=== PATIENT | female | born 1945 | race Caucasian/White ===

== ENCOUNTER 2017-01-27 14:50 | Inpatient (IN) | payer MEDICARE, BC ==
[~2017-01-27] VITALS: Ht 167.6 cm; Wt 66.0 kg
[2017-01-27 14:51] VITALS: BP 158/87; PULSE 107; RESP 16; TEMP 99.4; O2SAT 98
--- NOTE | 2017-01-27 15:34 | PD ---
Physical Exam Date Seen by Provider: Jan 27, 2017 Time Seen by Provider: 15:29 Data Data Last Documented VS Vital Signs Date Time Temp Pulse Resp B/P Pulse Ox O2 Delivery O2 Flow Rate FiO2 01/27/17 14:51 99.4 107 16 158/87 98 MDM Supervised Visit with BRET: No Narrative Course 72 YO F with complaint of abdominal pain x "a couple weeks." History of diverticulitis. Treated with antibiotics, symptoms worsened. Outpatient CT scan at [facility] showed abscess. Sent by Dr. Gonsalves "for admission, IV antibiotics and drain placement." Vitals reviewed. Seen in triage, awaiting bed placement. Tamanna Treviño Jan 27, 2017 15:34
[2017-01-27 17:15] VITALS: BP 157/72; PULSE 108; RESP 16; O2SAT 97
--- NOTE | 2017-01-27 17:31 | HHI.PR ---
Addendum to Inpatient Note Addendum Reason: Additional Documentation Additional Information Dr. Martinez (Primary care outpatient): I spoke with radiologist at [facility] and with Dr. Gillespie today (her GI--please consult). She has an 8cm midline diverticular abscess. Dr. Gillespie asked for inpatient IV antibiotics and radiology consult for drainage of the abscess. She recently completed 10 days of cipro/flagyl and just didn't feel right on that med. May consider Unasyn or other to treat. Pt also has lupus and antiphospholipid syndrome. Please call if you have questions. Yasmine Hutchinson MD Jan 27, 2017 17:31
[2017-01-27] MEDS ORDERED: LANS30CA PO (17:35)
[2017-01-27] MEDS ORDERED: RAMI2.5C PO (17:35)
[2017-01-27] MEDS ORDERED: PLAQ200T PO (17:35)
[2017-01-27] MEDS ORDERED: VITA100036 PO (17:35)
[2017-01-27] MEDS ORDERED: MULTTAB67 PO (17:35)
[2017-01-27] MEDS ORDERED: ASPI81CH CHEW (17:35)
[2017-01-27] MEDS: DEXT 5%-NACL 0.45% 1000 ML INJ 1,000 ML IV SCH (18:10)
[2017-01-27 18:15] LABS: AUTOMATED NEUTROPHIL # 6.2 TH/MM3 (1.8-7.7); BASOPHIL % 0.4 % (0.0-2.0); EOSINOPHIL % 0.1 % (0.0-4.0); HEMATOCRIT 36.3 % (35.0-46.0); HEMO FLAGS DIFF FINAL; LYMPH % 8.2 % (9.0-44.0); LYMPHOCYTE # 0.6 TH/MM3 (1.0-4.8); MEAN CELL VOLUME 83.3 FL (80.0-100.0); MEAN CORPUSCULAR HEMOGLOBIN 26.9 PG (27.0-34.0); MEAN CORPUSCULAR HGB CONC 32.3 % (32.0-36.0); MONO % 8.9 % (0.0-8.0); NEUT % 82.4 % (16.0-70.0); PLATELET COUNT 243 TH/MM3 (150-450); RED BLOOD COUNT 4.35 MIL/MM3 (4.00-5.30); RED CELL DISTRIBUTION WIDTH 15.5 % (11.6-17.2); WHITE BLOOD COUNT 7.6 TH/MM3 (4.0-11.0)
[2017-01-27] MEDS ORDERED: PIPERACIL-TAZO 4.5 GM PREMIX 100 ML IV ONE (18:15)
[2017-01-27 18:21] LABS: BLOOD, URINE NEG (NEG); COMMENT (UR) CULT NOT INDICATED; CULTURE IF INDICATED CULT NOT INDICATED; GLUCOSE,URINE NEG (NEG); KETONE, URINE NEG (NEG); NITRITE,URINE NEG (NEG); SQUAMOUS EPITHELIAL CELL URINE 1 /hpf (0-5); URINE COLOR LIGHT-YELLOW (YELLW/STRAW)
[2017-01-27 18:51] LABS: ALT (GPT) 26 U/L (10-53); ANION GAP 10 MEQ/L (5-15); AST (GOT) 26 U/L (15-37); BICARBONATE 25.7 MEQ/L (21.0-32.0); BLOOD UREA NITROGEN 12 MG/DL (7-18); CHLORIDE 99 MEQ/L (98-107); GLOMERULAR FILTRATION RATE 53 ML/MIN (>89); POTASSIUM 3.7 MEQ/L (3.5-5.1); SODIUM (NA) 135 MEQ/L (136-145)
[2017-01-27 18:53] LABS: ALKALINE PHOSPHATASE 46 U/L (45-117)
[2017-01-27] MEDS ORDERED: NALOXONE HCL 0.4 MG/ML AMP IV PRN (19:00)
[2017-01-27] MEDS ORDERED: MAGNESIUM HYDROXIDE SUSP 30 ML CUP PO PRN (19:00)
[2017-01-27] MEDS ORDERED: LACTULOSE SYRUP 20 GM/30 ML CUP PO PRN (19:00)
[2017-01-27] MEDS ORDERED: BISACODYL 10 MG SUPP RECTAL PRN (19:00)
[2017-01-27] MEDS ORDERED: SENNOSIDES 8.6 MG TAB PO PRN (19:00)
[2017-01-27] MEDS ORDERED: ONDANSETRON HCL 4 MG/2 ML VIAL IVP PRN (19:00)
[2017-01-27] MEDS ORDERED: SODIUM CHLORIDE 0.9% FLUSH 10 ML FLUSH IV FLUSH PRN (19:00)
[2017-01-27 19:11] VITALS: BP 151/71; PULSE 97; RESP 16; O2SAT 98
[2017-01-27] MEDS: SODIUM CHLORIDE 0.9% FLUSH 10 ML FLUSH IV FLUSH SCH (21:00)
[2017-01-27 21:20] VITALS: BP 130/64; PULSE 107; RESP 18; TEMP 97.8; O2SAT 95
--- NOTE | 2017-01-27 22:19 | HHI.HP ---
HPI Service [facility] Primary Care Physician Yasmine Martinez MD Admission Diagnosis Diverticulitis with abscess, failed outpatient treatment Diagnoses: Chief Complaint: abdominal pain Travel History International Travel<30 Days: No Contact w/Intl Traveler <30 Da: No Traveled to Known Affected Are: No History of Present Illness Written by Hannah Santamaria, acting as scribe for Dr. Abdi on 01/27/17 at 22: 19. This is a pleasant 72-year-old female patient with past medical history which includes diverticulitis, systemic lupus on Actonel mild hypertension and GERD. Patient reports for the past 2 weeks she has had severe stabbing generalized abdominal pain. Patient has completed 10 days of Cipro and Flagyl by mouth as outpatient antibiotics. Patient reports initially the abdominal pain improved with the by mouth antibiotics but later returned. Patient's PCP ordered in abdomen/pelvis CT which will was done today at [facility]. Per Dr. Martinez's note the abdominal/pelvis CT showed 8cm midline diverticular abscess Patient reports low-grade fever and passage of large amount of formed stool. Patient states she is "constantly going, but not diarrhea." Patient denies black tarry stools or bright red blood per rectum. Patient also reports increased frequency of urination with dysuria. UA reviewed and reveals negative protein negative ketones negative nitrates small amount of leukocyte esterase. Patient reports some nausea present but denies vomiting. Patient also denies chest pain or shortness of breath. Review of Systems Except as stated in HPI: all other systems reviewed are Neg Past Family Social History Past Medical History diverticulitis, systemic lupus, mild HTN, GERD Past Surgical History C section x 2, hysterectomy and cholecystectomy Reported Medications Multiple Vitamin 1 Tab 1 Tab PO DAILY Vitamin D3 (Cholecalciferol) 1,000 Unit Cap 1,000 Units PO DAILY Plaquenil (Hydroxychloroquine Sulfate) 200 Mg Tab 200 Mg PO DAILY Take with food Aspirin 81 Mg Chew 81 Mg CHEW DAILY Ramipril 2.5 Mg Cap 2.5 Mg PO DAILY Lansoprazole 30 Mg Capdr 30 Mg PO DAILY Allergies: Coded Allergies: Sulfa (Verified Allergy, Severe, 02/24/06) Active Ordered Medications Current Medications Medications (Trade) Dose Ordered Sig/Bonifacio Route Start Time Stop Time Status Last Admin (D5W-/2 NS 1000 ml Inj) 1,000 ml @ 100 mls/hr Q10H IV 01/27/17 18:15 01/27/17 18:10 (NS Flush) 2 ml UNSCH PRN IV FLUSH 01/27/17 19:00 (NS Flush) 2 ml BID IV FLUSH 01/27/17 21:00 (Zofran Inj) 4 mg Q6H PRN IVP 01/27/17 19:00 (Narcan Inj) 0.4 mg UNSCH PRN IV 01/27/17 19:00 (Liza-Colace) 1 tab BID PO 01/27/17 21:00 (Milk Of Magnesia Liq) 30 ml Q12H PRN PO 01/27/17 19:00 (Senokot) 17.2 mg Q12H PRN PO 01/27/17 19:00 (Dulcolax Supp) 10 mg DAILY PRN RECTAL 01/27/17 19:00 Lactulose 30 ml 30 ml DAILY PRN PO 01/27/17 19:00 (Zosyn 3.375 Gm Premix) 50 ml @ 100 mls/hr Q6H IV 01/28/17 00:00 (Altace) 2.5 mg DAILY PO 01/28/17 09:00 (Protonix) 40 mg DAILY PO 01/28/17 09:00 Family History Patient reports DM and CAD runs on the family Social History social ETOH Quit smoking 1969 denies illicit drug use Physical Exam Vital Signs Vital Signs Date Time Temp Pulse Resp B/P Pulse Ox O2 Delivery O2 Flow Rate FiO2 01/27/17 21:20 97.8 107 18 130/64 95 01/27/17 19:11 97 16 151/71 98 Room Air 01/27/17 17:15 108 16 157/72 97 Room Air 01/27/17 14:51 99.4 107 16 158/87 98 Physical Exam GENERAL: This is a well-nourished, well-developed patient, in no apparent distress. SKIN: No rashes, ecchymoses or lesions. Cool and dry. HEAD: Atraumatic. Normocephalic. No temporal or scalp tenderness. EYES: Pupils equal round and reactive. Extraocular motions intact. No scleral icterus. No injection or drainage. ENT: Nose without bleeding, purulent drainage or septal hematoma. Throat without erythema, tonsillar hypertrophy or exudate. Uvula midline. Airway patent. NECK: Trachea midline. No JVD or lymphadenopathy. Supple, nontender, no meningeal signs. CARDIOVASCULAR: Regular rate and rhythm without murmurs, gallops, or rubs. RESPIRATORY: Clear to auscultation. Breath sounds equal bilaterally. No wheezes , rales, or rhonchi. GASTROINTESTINAL: Abdomen soft, generalized abdominal pain, nondistended. No guarding. MUSCULOSKELETAL: Extremities without clubbing, cyanosis, or edema. No joint tenderness, effusion, or edema noted. No calf tenderness. Negative Homans sign bilaterally. NEUROLOGICAL: Awake and alert. Cranial nerves II through XII intact. Motor and sensory grossly within normal limits. Five out of 5 muscle strength in all muscle groups. Normal speech. Laboratory Laboratory Tests Test 01/27/17 18:00 White Blood Count 7.6 Red Blood Count 4.35 Hemoglobin 11.7 Hematocrit 36.3 Mean Corpuscular Volume 83.3 Mean Corpuscular Hemoglobin 26.9 Mean Corpuscular Hemoglobin 32.3 Concent Red Cell Distribution Width 15.5 Platelet Count 243 Mean Platelet Volume 8.0 Neutrophils (%) (Auto) 82.4 Lymphocytes (%) (Auto) 8.2 Monocytes (%) (Auto) 8.9 Eosinophils (%) (Auto) 0.1 Basophils (%) (Auto) 0.4 Neutrophils # (Auto) 6.2 Lymphocytes # (Auto) 0.6 Monocytes # (Auto) 0.7 Eosinophils # (Auto) 0.0 Basophils # (Auto) 0.0 CBC Comment DIFF FINAL Differential Comment Urine Color LIGHT-YELLOW Urine Turbidity CLEAR Urine pH 6.0 Urine Specific [place] 1.009 Urine Protein NEG Urine Glucose (UA) NEG Urine Ketones NEG Urine Occult Blood NEG Urine Nitrite NEG Urine Bilirubin NEG Urine Urobilinogen LESS THAN 2.0 Urine Leukocyte Esterase SMALL Urine WBC 5 Urine Squamous Epithelial 1 Cells Microscopic Urinalysis Comment CULT NOT INDICATED Sodium Level 135 Potassium Level 3.7 Chloride Level 99 Carbon Dioxide Level 25.7 Anion Gap 10 Blood Urea Nitrogen 12 Creatinine 1.02 Estimat Glomerular Filtration 53 Rate Random Glucose 123 Calcium Level 9.7 Total Bilirubin 1.0 Aspartate Amino Transf 26 (AST/SGOT) Alanine Aminotransferase 26 (ALT/SGPT) Alkaline Phosphatase 46 Total Protein 9.7 Albumin 4.0 Date/Time Procedure Status Source Growth 01/27/17 18:00 Aerobic Blood Culture Received Blood Peripheral Pending 01/27/17 18:00 Anaerobic Blood Culture Received Blood Peripheral Pending Result Diagram: 01/27/17 1800 01/27/17 1800 Assessment and Plan Problem List: (1) Diverticulitis ICD Code: K57.92 Status: Acute (2) Abscess ICD Code: L02.91 Status: Acute (3) Systemic lupus ICD Code: M32.9 Status: Acute Assessment and Plan This is a pleasant 72-year-old female patient with past medical history which includes diverticulitis, systemic lupus on Actonel mild hypertension and GERD. Patient reports for the past 2 weeks she has had severe stabbing generalized abdominal pain. Patient has completed 10 days of Cipro and Flagyl by mouth as outpatient antibiotics. abdomen/pelvis CT which will was done today showed 8cm midline diverticular abscess Abdominal pain Diverticulitis with abscess Failed outpatient therapy Zosyn IV Q6H Consult GI- patient known to Dr. Gillespie Consult IR for abscess drainage Systemic Lupus- chronic Continue home medication Plaquenil HTN- chronic Continue home medication ramipril 2.5 mg by mouth GERD- chronic continue home medication DVT prophylaxis with SCDs Discussed with nursing and patient Physician Certification 2 Midnight Certification Type: Admission for Inpatient Services Order for Inpatient Services The services are ordered in accordance with Medicare regulations or non- Medicare payer requirements, as applicable. In the case of services not specified as inpatient-only, they are appropriately provided as inpatient services in accordance with the 2-midnight benchmark. Estimated LOS (days): 3 days is the estimated time the patient will need to remain in the hospital, assuming treatment plan goals are met and no additional complications. Post-Hospital Plan: Home Hannah Santamaria Jan 27, 2017 22:19
[2017-01-27] MEDS: PIPERACIL-TAZO 3.375 GM PREMIX 50 ML IV SCH (23:55)
[2017-01-27] MEDS: DOCUSATE SODIUM 50 MG/SENNA 8.6 MG TAB PO SCH (23:55)
[2017-01-28] VITALS (7 sets, daily range): BP systolic 110–143; BP diastolic 54–70; PULSE 80–101; RESP 16–18; TEMP 96.8–99.9; O2SAT 95–99
[2017-01-28] MEDS: DEXT 5%-NACL 0.45% 1000 ML INJ 1,000 ML IV SCH ×3 (04:15→20:59)
[2017-01-28 05:27] LABS: AUTOMATED NEUTROPHIL # 4.8 TH/MM3 (1.8-7.7); BASOPHIL % 0.2 % (0.0-2.0); EOSINOPHIL % 0.1 % (0.0-4.0); HEMATOCRIT 30.8 % (35.0-46.0); HEMO FLAGS DIFF FINAL; LYMPH % 7.9 % (9.0-44.0); LYMPHOCYTE # 0.5 TH/MM3 (1.0-4.8); MEAN CELL VOLUME 81.9 FL (80.0-100.0); MEAN CORPUSCULAR HEMOGLOBIN 28.2 PG (27.0-34.0); MEAN CORPUSCULAR HGB CONC 34.4 % (32.0-36.0); MONO % 10.3 % (0.0-8.0); NEUT % 81.5 % (16.0-70.0); PLATELET COUNT 216 TH/MM3 (150-450); RED BLOOD COUNT 3.76 MIL/MM3 (4.00-5.30); RED CELL DISTRIBUTION WIDTH 15.3 % (11.6-17.2); WHITE BLOOD COUNT 5.9 TH/MM3 (4.0-11.0)
[2017-01-28 06:00] LABS: BICARBONATE 24.7 MEQ/L (21.0-32.0); POTASSIUM 3.6 MEQ/L (3.5-5.1)
[2017-01-28] MEDS: PIPERACIL-TAZO 3.375 GM PREMIX 50 ML IV SCH ×3 (06:00→16:53)
[2017-01-28] MEDS: ASPIRIN 81 MG CHEW TAB CHEW SCH (08:43)
[2017-01-28] MEDS: SODIUM CHLORIDE 0.9% FLUSH 10 ML FLUSH IV FLUSH SCH ×2 (08:43→21:00)
[2017-01-28] MEDS: RAMIPRIL 2.5 MG CAP PO SCH (08:45)
[2017-01-28] MEDS: HYDROXYCHLOROQUINE SULFATE 200 MG TAB PO SCH (08:45)
[2017-01-28] MEDS: PANTOPRAZOLE SOD 40 MG DELAYED RELEASE TAB PO SCH (08:45)
[2017-01-28] MEDS: DOCUSATE SODIUM 50 MG/SENNA 8.6 MG TAB PO SCH ×2 (08:45→21:03)
[2017-01-28 09:37] LABS: INTERNATIONAL NORMALIZED RATIO 1.2 RATIO; PROTHROMBIN TIME - PATIENT 13.4 SEC (9.8-11.6)
--- NOTE | 2017-01-28 10:36 | MB ---
cc: VINITA MILLER M.D., SANDRA AGNONE, LOUIS M. MD OUNG,KATHLEEN FOY DATE OF CONSULTATION 01/28/[address] Abdi REASON FOR CONSULTATION For diverticular abscess. HISTORY This is a very pleasant 72-year-old female who states she had an episode of diverticulitis about two years ago. She developed abdominal pain a couple of weeks ago and was treated for suspected diverticulitis as an outpatient with oral Cipro and Flagyl, but she continued to have abdominal pain and recently some chills. Since she was not improving, she was sent yesterday to the outpatient imaging center for a CT scan which reportedly shows an 8 cm abscess involving the sigmoid colon. I have not been able to access those films yet. The patient was subsequently admitted and started on IV Zosyn. The patient does have a history of systemic lupus for which she takes Plaquenil. She states that colonoscopy was very difficult for her so she has been having a flex-sig and barium enema and the last one was a few years ago. No family history of colon cancer. She states she has lost a few pounds just in the last couple of weeks because she has been reluctant to eat because of the abdominal pain. She is moving her bowels and has not had any gross blood in the stool. Her abdominal pain is currently mild. SOCIAL HISTORY The patient is . She has two children. She quit smoking in 1968. No significant alcohol history. PAST MEDICAL HISTORY Her medical history is remarkable for: 1. GERD 2. Systemic lupus 3. A past history of diverticulitis once about two years ago. 4. History of mild hypertension. PAST SURGICAL HISTORY She has had: 1. Two C-sections 2. Hysterectomy 3. Cholecystectomy MEDICATIONS At home include: 1. Multivitamin 2. Vitamin D3 3. Plaquenil 4. Aspirin 81 mg daily 5. Ramipril 2.5 mg daily 6. Lansoprazole 30 mg daily ALLERGIES SHE IS ALLERGIC TO SULFA. FAMILY HISTORY Remarkable for heart disease and diabetes. No family history of colon cancer or polyps. REVIEW OF SYSTEMS She denies headache, chest pain, shortness of breath, significant joint pain or skin rashes. She has had the abdominal pain and more recently some chills as described above. The 10-point review of systems was otherwise negative. PHYSICAL EXAM Physical exam reveals a well-developed female in no acute distress. VITAL SIGNS: Her blood pressure is 143/70, pulse 101, respirations 17 nonlabored, temperature is 99.9 orally. HEAD, EYES, EARS, NOSE, AND THROAT: Sclerae anicteric. NECK: Supple without masses. LUNGS: Clear to percussion auscultation. HEART: Heart sounds reveal a very mild tachycardia without murmur, gallop or rub. ABDOMEN: Soft and slightly rounded with moderate tenderness in the left lower quadrant suprapubic area with some mild guarding, but no rebound. Bowel sounds are audible. RECTAL: Deferred. EXTREMITIES: No cyanosis, clubbing or edema. No calf tenderness. SKIN: Skin is warm and dry. NEUROLOGIC: She is alert and oriented with a pleasant affect and no gross motor deficits. LABORATORY DATA Lab work reveals a white count of 5.9 with a mild left shift. Hemoglobin is 10.6, platelet count 216,000, creatinine 0.85. LFTs are unremarkable. Total protein 9.7, blood cultures are pending. IMAGING STUDIES A CT scan done yesterday as an outpatient reportedly showing diverticulitis with a large 8-cm abscess. IMPRESSION Acute diverticulitis complicated by an abscess. This is the patient's second documented episode of diverticulitis which is now complicated by an abscess. PLAN Agree with changing her antibiotic. She is currently receiving Zosyn. Interventional radiology has also been consulted for percutaneous drainage of the abscess. I discussed this option with the patient along with surgery. Ideally, if the infection can be resolved with antibiotics and percutaneous drainage, then elective surgery could be considered later on. At some point, would recommend consultation with surgery. We will follow closely with you. Thank you for this consult. MD KARTHIKEYAN Mock/SHIRA /9:18 AM /10:23 AM ILDEFONSO
[2017-01-28] MEDS ORDERED: LIDOCAINE 1%/EPINEPHrine 1:100,000 SOLN 20 ML VIAL ONE (13:25)
[2017-01-28] MEDS ORDERED: fentaNYL CITRATE 250 MCG/5 ML AMP ONE (13:27)
[2017-01-28] MEDS ORDERED: MIDAZOLAM HCL 5 MG/5 ML VIAL ONE (13:27)
--- NOTE | 2017-01-28 15:00 | PD.RAD ---
Post CT Procedure Prog Note Pre Procedure Diagnosis: (1) Diverticulitis (2) Abscess Post Procedure Diagnosis: (1) Abscess (2) Diverticulitis Procedure Date: Jan 28, 2017 Supervising Radiologist: Sincere Roger Proceduralist/Assist: RT Violeta(R)(CT) Estimated blood loss: None Anesthesia: Conscious Sedation Plan of Activity Patient to Unit: ROPU Patient Condition: Good See PACS Report for procedural detail/treatment Drainage Procedure Procedure 1 Procedure Type: Abscess Drainage Procedure: Placement Mongolian: 12 Drainage: Suction Fluid Removal (CCs): 50 Fluid Description: Purulent, Green Findings: 12 Fr locking skater catheter sutured in place Plan to ROPU and then return to floor once awake and alert Sincere Roger MD Jan 28, 2017 15:00
--- NOTE | 2017-01-28 15:46 | RADRPT ---
EXAM DATE/TIME: 01/28/2017 14:10 [place] COMPARISON: No previous studies available for comparison. Outside CT examination performed at [facility] was reviewed. INDICATIONS : Diverticular abscess. SEDATION TIME: 40 minutes MEDICATION(S): 1.) 3.5 mg midazolam (Versed) IV 2.) 200 mg fentanyl (Sublimaze) IV DEVICE(S): 1.) 12 Fr Skater FLUID: Total volume of 50 cc of lan fluid was removed. Fluid was sent for laboratory ordered studies. MEDICAL HISTORY : None. SURGICAL HISTORY : Hysterectomy. Cholecystectomy. ENCOUNTER: Initial ACUITY: 2 days PAIN SCORE: 4/10 LOCATION: Bilateral pelvis PROCEDURE: 1.) Conscious sedation with continuous EKG and oximetry monitoring. PROCEDURE : 1. CT guided drainage of the pelvic air and fluid collection. 2. Conscious sedation with continuous EKG and oximetry monitoring. The risks, benefits and alternatives to the procedure were explained and verbal and written consent w as obtained. Using automated exposure control and adjustment of the mA and/or kV according to patient size, radiation dose was kept as low as reasonably achievable to obtain optimal diagnostic quality i mages. The site was prepped in sterile fashion. Full sterile technique was used, including cap, ma sk, sterile gloves and gown and a large sterile sheet. Hand hygiene and 2% chlorhexidine and/or beta dine/alcohol prep was utilized per protocol for cutaneous antisepsis. The skin and subcutaneous tiss ues were infiltrated with local anesthetic solution. Using CT guidance the pelvic air and fluid collection was localized. Drainage was performed using th e prescribed catheter using a right transgluteal approach. The collection was accessed using an 18 ga uge Longo needle and over a Izquierdo wire the tract was serially dilated up to a 12 Montenegrin size. A 12 Montenegrin locking skater catheter was placed and secured to the patient's skin with suture. A sterile dr essing was applied. The patient tolerated the procedure well and there were no complications. Conscious sedation was per formed with the prescribed dosages and duration as above in the presence of an independent trained ra diology nurse to assist in the monitoring of the patient. EKG and oximetry remained stable throughou t the procedure. The patient tolerated the procedure well and there were no complications. The patient was sent to pos t anesthesia recovery in stable condition. CONCLUSION: Uncomplicated CT guided drainage of the pelvic abscess. A total of 50 cc of greenish purulent material was aspirated. Sample was saved and sent to the lab for Gram stain, culture, and se nsitivities. Sincere Roger MD on January 28, 2017 at 15:41 Board Certified Radiologist. This report was verified electronically.
--- NOTE | 2017-01-28 21:09 | HHI.PR ---
Subjective Remarks Patient seen this afternoon after drain placed. Tolerated procedure well. Denies any chest pain or shortness of breath. Reports pain is controlled. Would like to start diet back. Objective Vital Signs Date Time Temp Pulse Resp B/P Pulse Ox O2 Delivery O2 Flow Rate FiO2 01/28/17 20:30 96.8 90 17 110/54 97 01/28/17 16:00 88 18 124/66 96 01/28/17 15:30 96 18 126/67 95 01/28/17 15:15 98.9 95 18 126/70 95 01/28/17 12:00 99.2 97 16 133/63 99 01/28/17 08:00 99.9 101 17 143/70 98 01/28/17 00:13 99.4 80 18 129/63 97 01/27/17 21:20 97.8 107 18 130/64 95 I/O 01/27/17 01/27/17 01/27/17 01/28/17 01/28/17 01/28/17 07:00 15:00 23:00 07:00 15:00 23:00 Intake Total 483 ml 1208 ml 1421 ml Output Total 50 ml Balance 483 ml 1208 ml 1421 ml -50 ml Intake Oral 0 ml IV Total 483 ml 1208 ml 1421 ml Output Drainage Total 50 ml # Voids 1 2 4 # Bowel Movements 0 Result Diagram: 01/28/17 0456 01/28/17 0456 Objective Remarks GENERAL: patient lying in bed. Appears comfortable. Alert and oriented 3. SKIN: Warm and dry. HEAD: Normocephalic. EYES: No scleral icterus. No injection or drainage. NECK: Supple, trachea midline. No JVD or lymphadenopathy. CARDIOVASCULAR: Regular rate and rhythm without murmurs, gallops, or rubs. RESPIRATORY: Breath sounds equal bilaterally. No accessory muscle use. GASTROINTESTINAL: Abdomen soft, tenderness to moderate palpation left lower quadrant. Percutaneous drain with pus right posterior flank. MUSCULOSKELETAL: No cyanosis, or edema. BACK: Nontender without obvious deformity. No CVA tenderness. A/P Assessment and Plan =====01/28/17==== Patient doing well after drainage placement. Restart diet. -Continue antibiotics. Follow up drainage cultures. This is a pleasant 72-year-old female patient with past medical history which includes diverticulitis, systemic lupus on Actonel mild hypertension and GERD. Patient reports for the past 2 weeks she has had severe stabbing generalized abdominal pain. Patient has completed 10 days of Cipro and Flagyl by mouth as outpatient antibiotics. abdomen/pelvis CT which will was done today showed 8cm midline diverticular abscess //Abdominal pain //Diverticulitis with abscess //Failed outpatient therapy -Continue Zosyn IV Q6H -Status post IR drain placement with culture 01/28. -GI following. Appreciate assistance. //Systemic Lupus- chronic Continue home medication Plaquenil //HTN- chronic Continue home medication ramipril 2.5 mg by mouth //GERD- chronic continue home medication DVT prophylaxis with SCDs Discharge Planning pending GI clearance. Elroy Isaac MD Jan 28, 2017 21:09
[2017-01-29] VITALS (7 sets, daily range): BP systolic 100–136; BP diastolic 55–62; PULSE 82–100; RESP 16–20; TEMP 96.3–98.8; O2SAT 96–100
[2017-01-29] MEDS: PIPERACIL-TAZO 3.375 GM PREMIX 50 ML IV SCH ×5 (01:44→23:26)
[2017-01-29] MEDS: ASPIRIN 81 MG CHEW TAB CHEW SCH (08:04)
[2017-01-29] MEDS: HYDROXYCHLOROQUINE SULFATE 200 MG TAB PO SCH (08:04)
[2017-01-29] MEDS: PANTOPRAZOLE SOD 40 MG DELAYED RELEASE TAB PO SCH (08:04)
[2017-01-29] MEDS: DEXT 5%-NACL 0.45% 1000 ML INJ 1,000 ML IV SCH ×2 (08:04→20:15)
[2017-01-29] MEDS: DOCUSATE SODIUM 50 MG/SENNA 8.6 MG TAB PO SCH ×2 (08:04→21:00)
[2017-01-29] MEDS: RAMIPRIL 2.5 MG CAP PO SCH (08:05)
[2017-01-29] MEDS: SODIUM CHLORIDE 0.9% FLUSH 10 ML FLUSH IV FLUSH SCH ×2 (08:06→21:00)
--- NOTE | 2017-01-29 09:36 | HHI.GIFU ---
GI Follow-up Note Consult Follow-up Subjective: Patient underwent successful CT guided transgluteal drainage of abscess yesterday with 50cc fluid removed. Cultures pending. Has LLQ pain after eating but moving bowels and generally feels better. No further nausea. Objective: PHYSICAL EXAMINATION: Vitals signs stable No fever CHEST: breathing non-labored CARDIAC: Regular rate ABDOMEN: Soft,mildly distended but no significant tenderness. SKIN: warm and dry ASSEMBLER FINAL: alert and oriented times three. Available Data (labs, X- Rays, Procedues) : ASSESSMENT/PLAN: 1. Acute diverticulitis with abscess s/p percutaneous drainage. IR following daily. Continue IV Abx. Await culture results. Convenience consult surgery for segmental resection after infection resolved. Low residue diet. It was a pleasure seeing Verna Alvarado. Thank you for this consult. Entered by: Ryan Sanchez MD Jan 29, 2017 09:36
[2017-01-29] MEDS ORDERED: NALOXONE HCL 0.4 MG/ML AMP IV PRN (14:15)
[2017-01-29] MEDS ORDERED: ACETAMINOPHEN/HYDROcodone 325 MG/7.5 MG TAB PO PRN (14:15)
[2017-01-29] MEDS ORDERED: ACETAMINOPHEN/HYDROcodone 325 MG/5 MG TAB PO PRN (14:15)
[2017-01-29] MEDS ORDERED: ACETAMINOPHEN 325 MG TAB PO PRN (14:15)
--- NOTE | 2017-01-29 23:12 | HHI.PR ---
Subjective Remarks C/R Surg Pt examined, chart reviewed Second attack of LLQ pain this year - did have similar attack 2015 Now with lg abscess in pelvis - s/p drainage - apparent stool in drain bag Objective - Vital Signs Date Time Temp Pulse Resp B/P Pulse Ox O2 Delivery O2 Flow Rate FiO2 01/29/17 19:55 96.7 100 19 136/62 97 01/27/17 19:11 Room Air Result Diagram: 01/28/17 0456 01/28/17 0456 Objective Remarks PE alert Abd - soft, min tenderness, no mass Rectal - drain post, no induration A/P Assessment and Plan Imp: stable after drainage pelvic abscess, apparent stool/fistula try to cont PO nutrition, if able to go home with drain before scheduling elective surgery Shahram Mars MD Jan 29, 2017 23:12
--- NOTE | 2017-01-29 23:30 | HHI.PR ---
Subjective Remarks Patient seen this afternoon around 1 PM. Says she is feeling all right. Sitting up in chair. Reports pain is under control. Denies any chest pain or shortness of breath. Objective Vital Signs Date Time Temp Pulse Resp B/P Pulse Ox O2 Delivery O2 Flow Rate FiO2 01/29/17 19:55 96.7 100 19 136/62 97 01/29/17 16:00 96.3 84 16 122/59 98 01/29/17 12:00 96.5 87 16 100/55 97 01/29/17 08:00 98.0 82 16 127/61 100 01/29/17 04:27 97.9 85 18 112/59 100 01/29/17 00:12 98.8 86 18 112/60 96 I/O 01/28/17 01/28/17 01/28/17 01/29/17 01/29/17 01/29/17 07:00 15:00 23:00 07:00 15:00 23:00 Intake Total 1208 ml 1421 ml 2610 ml 1312 ml 955 ml 384 ml Output Total 100 ml 20 ml Balance 1208 ml 1421 ml 2510 ml 1292 ml 955 ml 384 ml Intake Oral 0 ml 480 ml 360 ml 240 ml IV Total 1208 ml 1421 ml 2130 ml 952 ml 715 ml 384 ml Output Drainage Total 100 ml 20 ml # Voids 2 4 3 2 5 # Bowel Movements 0 1 Result Diagram: 01/28/17 0456 01/28/17 0456 Objective Remarks GENERAL: patient sitting up in chair. Appears comfortable. Alert and oriented 3. SKIN: Warm and dry. HEAD: Normocephalic. EYES: No scleral icterus. No injection or drainage. NECK: Supple, trachea midline. No JVD or lymphadenopathy. CARDIOVASCULAR: Regular rate and rhythm without murmurs, gallops, or rubs. RESPIRATORY: Breath sounds equal bilaterally. No accessory muscle use. GASTROINTESTINAL: Abdomen soft, tenderness to moderate palpation left lower quadrant. Percutaneous drain with pus right posterior flank. MUSCULOSKELETAL: No cyanosis, or edema. BACK: Nontender without obvious deformity. No CVA tenderness. A/P Assessment and Plan =====01/29/17==== Patient doing well -drainage cultures reviewed. Gram-positive bacteria. Follow-up cultures and sensit-ivities. Infectious disease consulted for discharge antibiotics. This is a pleasant 72-year-old female patient with past medical history which includes diverticulitis, systemic lupus on Actonel mild hypertension and GERD. Patient reports for the past 2 weeks she has had severe stabbing generalized abdominal pain. Patient has completed 10 days of Cipro and Flagyl by mouth as outpatient antibiotics. abdomen/pelvis CT which will was done today showed 8cm midline diverticular abscess //Abdominal pain //Diverticulitis with abscess //Failed outpatient therapy -Continue Zosyn IV Q6H -Status post IR drain placement with culture 01/28. -GI following. Appreciate assistance. //Systemic Lupus- chronic Continue home medication Plaquenil //HTN- chronic Continue home medication ramipril 2.5 mg by mouth //GERD- chronic continue home medication DVT prophylaxis with SCDs Discharge Planning pending GI and surgical clearance. Elroy Isaac MD Jan 29, 2017 23:30
[2017-01-30] MEDS: PIPERACIL-TAZO 3.375 GM PREMIX 50 ML IV SCH (05:53)
[2017-01-30 05:54] LABS: BASOPHIL % 0.4 % (0.0-2.0); EOSINOPHIL % 0.5 % (0.0-4.0); HEMATOCRIT 30.1 % (35.0-46.0); HEMO FLAGS DIFF FINAL; LYMPH % 23.2 % (9.0-44.0); LYMPHOCYTE # 0.7 TH/MM3 (1.0-4.8); MEAN CELL VOLUME 81.2 FL (80.0-100.0); MEAN CORPUSCULAR HEMOGLOBIN 27.4 PG (27.0-34.0); MEAN CORPUSCULAR HGB CONC 33.8 % (32.0-36.0); MONO % 9.7 % (0.0-8.0); NEUT % 66.2 % (16.0-70.0); PLATELET COUNT 203 TH/MM3 (150-450); RED BLOOD COUNT 3.71 MIL/MM3 (4.00-5.30); RED CELL DISTRIBUTION WIDTH 15.1 % (11.6-17.2); WHITE BLOOD COUNT 3.1 TH/MM3 (4.0-11.0)
[2017-01-30 06:21] LABS: BICARBONATE 27.4 MEQ/L (21.0-32.0); MAGNESIUM 2.3 MG/DL (1.5-2.5); POTASSIUM 3.6 MEQ/L (3.5-5.1)
[2017-01-30 08:00] VITALS: BP 135/70; PULSE 90; RESP 18; TEMP 96.8; O2SAT 97
[2017-01-30] MEDS: SODIUM CHLORIDE 0.9% FLUSH 10 ML FLUSH IV FLUSH SCH ×2 (09:00→19:27)
[2017-01-30] MEDS: DOCUSATE SODIUM 50 MG/SENNA 8.6 MG TAB PO SCH (09:00)
[2017-01-30] MEDS: ASPIRIN 81 MG CHEW TAB CHEW SCH (09:36)
[2017-01-30] MEDS: PANTOPRAZOLE SOD 40 MG DELAYED RELEASE TAB PO SCH (09:36)
[2017-01-30] MEDS: RAMIPRIL 2.5 MG CAP PO SCH (09:37)
[2017-01-30] MEDS: HYDROXYCHLOROQUINE SULFATE 200 MG TAB PO SCH (09:37)
--- NOTE | 2017-01-30 09:42 | PD.CONS ---
History of Present Illness Service Infectious Disease Consult Requested By Dr Isaac Reason for Consult Evaluate patient with diverticular abscess, assist with antibiotic Primary Care Physician Yasmine Martinez MD Diagnoses: History of Present Illness Patient seen and examined. Records reviewed. Patient is a 72-year-old female, admitted to the hospital for further management of right diverticular abscess. Patient has had lower abdominal pain over the last 2 weeks. Is given Cipro and Flagyl with some mild improvement but the symptoms recurred. CT of the abdomen and pelvis was done and it showed an 8 cm pelvic abscess. Patient was admitted to the hospital for further management. She underwent CT-guided drainage of the abscess, and a drain was left in place. The initial output look like stool, currently output looks more blood tinge fluid. She continues to have lower abdominal pain although better. Patient states she's had some low-grade fevers and mild chills are to coming into the hospital. She is currently on Zosyn. She denies any nausea or vomiting. Has not had any respiratory or urinary complaints. Infectious disease consultation requested to evaluate the patient. Review of Systems Constitutional: COMPLAINS OF: Fever, Chills Eyes: DENIES: Eye pain Ears, nose, mouth, throat: DENIES: Nasal discharge, Oral lesions, Throat pain, Sinus Pain, Toothache Respiratory: DENIES: Cough, Shortness of breath Cardiovascular: DENIES: Chest pain, Palpitations Gastrointestinal: COMPLAINS OF: Abdominal pain, DENIES: Constipation, Diarrhea , Nausea, Vomiting, Difficulty Swallowing Genitourinary: DENIES: Urinary frequency, Urgency, Dysuria Musculoskeletal: COMPLAINS OF: Joint pain, Joint Swelling Integumentary: DENIES: Rash Neurologic: DENIES: Headache, Localized weakness Psychiatric: DENIES: Confusion, Hallucinations Past Family Social History Allergies: Coded Allergies: Sulfa (Verified Allergy, Severe, 02/24/06) Past Medical History Previous episode of diverticulitis Systemic lupus Hypertension GERD Past Surgical History C section x 2 Hysterectomy Cholecystectomy Active Ordered Medications Tylenol Vandemere Aspirin Dulcolax Plaquenil Lactulose MOM Zosyn Altace Liza-Colace [place] Family History DM CAD Social History Social ETOH Quit smoking 1968 Denies illicit drug use Physical Exam Vital Signs Vital Signs Date Time Temp Pulse Resp B/P Pulse Ox O2 Delivery O2 Flow Rate FiO2 01/30/17 08:00 96.8 90 18 135/70 97 01/29/17 23:55 98.1 85 20 125/60 99 01/29/17 19:55 96.7 100 19 136/62 97 01/29/17 16:00 96.3 84 16 122/59 98 01/29/17 12:00 96.5 87 16 100/55 97 Physical Exam GENERAL: Patient is a well-nourished, well-developed CF, awake and alert, not in respiratory distress. SKIN: Warm and dry. No generalized rash, no ecchymoses and no evidence of embolic lesions. HEAD: Atraumatic. Normocephalic. No temporal wasting, or tenderness. EYES: [place] conjunctiva. No petechia or hemorrhage. Pupils equal, round and reactive to light. Extraocular movements full and intact. No scleral icterus. No injection or drainage. EARS, NOSE AND THROAT: Nose without bleeding or purulent nasal discharge. No sinus tenderness. Mucous membranes pink and moist. No oral lesions noted. No exudate. No oral thrush. NECK: Trachea midline. Supple and not tender, no meningeal signs CARDIOVASCULAR: Regular rate and rhythm. No murmurs, rubs or gallops heard RESPIRATORY: Clear to auscultation. Breath sounds equal bilaterally. No rales , wheezing or rhonchi ABDOMEN: Soft, nondistended, bowel sounds present and normoactive, with tenderness in lower quadrants, no guarding. No rebound. No organomegaly. Midline scars compatible with surgical history BACK: has drain in place, green stool looking fluid in bag, but reddish brown fluid now in the tubing EXTREMITIES: No clubbing, cyanosis, or edema. Has some swelling of her R wrist joint, not red, min tender, good ROM. No calf tenderness. Well perfused and warm. NEUROLOGICAL: Awake and alert. Cranial nerves grossly intact. Motor grossly within normal limits. PSYCHIATRIC: Normal affect, calm and cooperative. LINE: No evidence of infection Laboratory Laboratory Tests Test 01/30/17 04:50 White Blood Count 3.1 Red Blood Count 3.71 Hemoglobin 10.2 Hematocrit 30.1 Mean Corpuscular Volume 81.2 Mean Corpuscular Hemoglobin 27.4 Mean Corpuscular Hemoglobin 33.8 Concent Red Cell Distribution Width 15.1 Platelet Count 203 Mean Platelet Volume 8.1 Neutrophils (%) (Auto) 66.2 Lymphocytes (%) (Auto) 23.2 Monocytes (%) (Auto) 9.7 Eosinophils (%) (Auto) 0.5 Basophils (%) (Auto) 0.4 Neutrophils # (Auto) 2.0 Lymphocytes # (Auto) 0.7 Monocytes # (Auto) 0.3 Eosinophils # (Auto) 0.0 Basophils # (Auto) 0.0 CBC Comment DIFF FINAL Differential Comment Sodium Level 143 Potassium Level 3.6 Chloride Level 109 Carbon Dioxide Level 27.4 Anion Gap 7 Blood Urea Nitrogen 7 Creatinine 0.89 Estimat Glomerular Filtration 63 Rate Random Glucose 101 Calcium Level 8.8 Phosphorus Level 2.7 Magnesium Level 2.3 Albumin 2.8 Date/Time Procedure Status Source Growth 01/28/17 15:00 Gram Stain - Final Resulted Abscess Other 01/28/17 15:00 Wound Culture - Preliminary Resulted Abscess Other 01/27/17 18:00 Aerobic Blood Culture - Preliminary Resulted Blood Peripheral NO GROWTH IN 2 DAYS 01/27/17 18:00 Anaerobic Blood Culture - Preliminary Resulted Blood Peripheral NO GROWTH IN 2 DAYS Result Diagram: 01/30/17 0450 01/30/17 0450 Imaging RADIOLOGY STUDIES/FILMS REVIEWED Abscess Drainage CT 01/28/17 1318 Signed Impressions: Service Date/Time: , January 28, 2017 14:10 - CONCLUSION: Uncomplicated CT guided drainage of the pelvic abscess. A total of 50 cc of greenish purulent material was aspirated. Sample was saved and sent to the lab for Gram stain, culture, and sensitivities. Sincere Roger MD Assessment and Plan Assessment and Plan IMPRESSION Diverticular abscess, ?stool fistula - did not improve with Cipro and Flagyl likely due to development of complication of her diverticultis Known Lupus RECOMMENDATION Follow C/S Continue Zosyn, increase dose since patient immunocmpromised from her SLE Follow CBC - WBC down to 3.1 Monitor progress I will determine course of Abx once C/S finalized Thank you for this consultation Discussed Condition With Explained plan to the patient D/W Akanksha Atkins MD Jan 30, 2017 09:42
--- NOTE | 2017-01-30 10:18 | HHI.GIFU ---
GI Follow-up Note Consult Follow-up Subjective: Patient feeling better. No abd pain. Had questions about her diet. Dr Mars's note seen. Objective: PHYSICAL EXAMINATION: Vitals signs stable No fever CHEST: breathing non-labored CARDIAC: Regular rate and rhythm. ABDOMEN: Soft, nondistended, nontender. EXTREMITIES: No clubbing, cyanosis, or edema. SKIN: Normal; no rash; no jaundice. FRENCH LECTURER: No focal deficits; alert and oriented times three. Available Data (labs, X- Rays, Procedues) : ASSESSMENT/PLAN: 1.Diverticulitis w/ abscess s/p percutaneous drainage. Liquid brown fluid draining c/w stool. cultures not helpful so far but WBC decreasing and pt improving. I discussed a low residue diet and the importance of good nutrition prior to any surgery. Will defer discharge planning and when to remove drain to CRS and IR. Nothing else to add so will sign off but available if needed. It was a pleasure seeing Verna Alvarado. Thank you for this consult. Entered by: Ryan Sanchez MD Jan 30, 2017 10:18
[2017-01-30] MEDS ORDERED: Vancomycin Consult Pharmacy 1 EA OTHER SCH (11:45)
[2017-01-30] MEDS ORDERED: DOCUSATE SODIUM 50 MG/SENNA 8.6 MG TAB PO PRN (11:45)
[2017-01-30 12:00] VITALS: BP 142/74; PULSE 86; RESP 16; TEMP 97.4; O2SAT 98
--- NOTE | 2017-01-30 12:19 | HHI.PR ---
Subjective Remarks C/R Surg Pt examined, chart reviewed drain - little, but feculent roger PO Objective - Vital Signs Date Time Temp Pulse Resp B/P Pulse Ox O2 Delivery O2 Flow Rate FiO2 01/30/17 12:00 97.4 86 16 142/74 98 01/27/17 19:11 Room Air Result Diagram: 01/30/17 0450 01/30/17 0450 Objective Remarks PE alert Abd - soft, min tenderness, no mass Rectal - drain post, no induration, little output A/P Assessment and Plan Imp: stable after drainage pelvic abscess, apparent stool/fistula try to cont PO nutrition, if able to go home with drain before scheduling elective surgery ? MRSA fu abscess drainage in few days Shahram Mars MD Jan 30, 2017 12:19
[2017-01-30] MEDS ORDERED: VANCOMYCIN INJ 1,000 MG in SODIUM CHLOR 0.9% 250 ML INJ 250 ML IV ONE (13:30)
[2017-01-30] MEDS: PIPERACIL-TAZO 4.5 GM PREMIX 100 ML IV SCH ×3 (14:07→23:56)
--- NOTE | 2017-01-30 15:37 | HHI.PR ---
Subjective Remarks pt seen in am around 10 am. feels alright. no cp or sob. small BMs. abd pain improved. Objective Vital Signs Date Time Temp Pulse Resp B/P Pulse Ox O2 Delivery O2 Flow Rate FiO2 01/30/17 12:00 97.4 86 16 142/74 98 01/30/17 08:00 96.8 90 18 135/70 97 01/29/17 23:55 98.1 85 20 125/60 99 01/29/17 19:55 96.7 100 19 136/62 97 01/29/17 16:00 96.3 84 16 122/59 98 I/O 01/29/17 01/29/17 01/29/17 01/30/17 01/30/17 01/30/17 07:00 15:00 23:00 07:00 15:00 23:00 Intake Total 1312 ml 955 ml 384 ml 100 ml 1400 ml Output Total 20 ml 30 ml 30 ml Balance 1292 ml 955 ml 354 ml 70 ml 1400 ml Intake Oral 360 ml 240 ml 1400 ml IV Total 952 ml 715 ml 384 ml 100 ml Drainage Total 20 ml 30 ml 30 ml # Voids 2 5 5 # Bowel Movements 1 4 Result Diagram: 01/30/17 0450 01/30/17 0450 Imaging Last Impressions Abscess Drainage CT 01/28/17 1318 Signed Impressions: Service Date/Time: January 14:10 - CONCLUSION: Uncomplicated CT guided drainage of the pelvic abscess. A total of 50 cc of greenish purulent material was aspirated. Sample was saved and sent to the lab for Gram stain, culture, and sensitivities. Sincere Roger MD Objective Remarks GENERAL: patient sitting up in bed. appears comfortable. Alert and oriented 3. Heart rate in the 90s on exam. SKIN: Warm and dry. HEAD: Normocephalic. EYES: No scleral icterus. No injection or drainage. NECK: Supple, trachea midline. No JVD or lymphadenopathy. CARDIOVASCULAR: Regular rate and rhythm without murmurs, gallops, or rubs. RESPIRATORY: Breath sounds equal bilaterally. No accessory muscle use. GASTROINTESTINAL: Abdomen soft, nontender Percutaneous drain with pus right posterior flank as before.. MUSCULOSKELETAL: No cyanosis, or edema. BACK: Nontender without obvious deformity. No CVA tenderness. A/P Assessment and Plan =====6/24/17==== DW nurse MRSA positive. switch abx to Vancomycin, place on contact precautions. very strange for diverticular abcess 2/2 MRSA. await sensitivities. //Sepsis. Leukopenia and tachycardia. MRSA abscess.. White blood cell count 3.1. Neutrophils acceptable. This is a pleasant 72-year-old female patient with past medical history which includes diverticulitis, systemic lupus on Actonel mild hypertension and GERD. Patient reports for the past 2 weeks she has had severe stabbing generalized abdominal pain. Patient has completed 10 days of Cipro and Flagyl by mouth as outpatient antibiotics. abdomen/pelvis CT which will was done today showed 8cm midline diverticular abscess //Abdominal pain //Diverticulitis with abscess //Failed outpatient therapy //Suspected sepsis. -01/30. Leukopenia. Tachycardia. MRSA abscess. Add vancomycin. -Continue Zosyn IV Q6H, vanco -Status post IR drain placement with culture 01/28. -GI following. Appreciate assistance. //Systemic Lupus- chronic Continue home medication Plaquenil //HTN- chronic Continue home medication ramipril 2.5 mg by mouth //GERD- chronic continue home medication //DVT prophylaxis with SCDs Discharge Planning on ABX for MRSA diverticular abcess. Elroy Isaac MD Jan 30, 2017 15:37
[2017-01-30] MEDS ORDERED: SODIUM CHLORID 0.9% 500 ML INJ 500 ML IV ONE (15:45)
[2017-01-30 16:00] VITALS: BP 124/56; PULSE 97; RESP 17; TEMP 96.6; O2SAT 100
[2017-01-30] MEDS: D5-1/2 NS + KCL 20 MEQ INJ 1,000 ML IV SCH (19:32)
[2017-01-30 20:11] VITALS: BP 153/70; PULSE 72; RESP 18; TEMP 97.8; O2SAT 97
[2017-01-31] VITALS: BP 159/74; PULSE 72; RESP 18; TEMP 98; O2SAT 97
[2017-01-31] MEDS ORDERED: VANCOMYCIN 1,000 MG/NS 250 ML IV SCH ×2 (06:00)
[2017-01-31] MEDS: PIPERACIL-TAZO 4.5 GM PREMIX 100 ML IV SCH (06:00)
[2017-01-31 06:18] LABS: AUTOMATED NEUTROPHIL # 1.3 TH/MM3 (1.8-7.7); BASOPHIL % 0.5 % (0.0-2.0); EOSINOPHIL % 0.5 % (0.0-4.0); HEMO FLAGS DIFF FINAL; LYMPH % 31.3 % (9.0-44.0); LYMPHOCYTE # 0.7 TH/MM3 (1.0-4.8); MEAN CELL VOLUME 82.1 FL (80.0-100.0); MEAN CORPUSCULAR HEMOGLOBIN 27.7 PG (27.0-34.0); MEAN CORPUSCULAR HGB CONC 33.7 % (32.0-36.0); MONO % 12.2 % (0.0-8.0); NEUT % 55.5 % (16.0-70.0); PLATELET COUNT 189 TH/MM3 (150-450); RED BLOOD COUNT 3.54 MIL/MM3 (4.00-5.30); WHITE BLOOD COUNT 2.4 TH/MM3 (4.0-11.0)
[2017-01-31 08:00] VITALS: BP 146/70; PULSE 90; RESP 16; TEMP 98.5; O2SAT 99
[2017-01-31] MEDS: D5-1/2 NS + KCL 20 MEQ INJ 1,000 ML IV SCH ×2 (09:19→19:27)
[2017-01-31] MEDS: HYDROXYCHLOROQUINE SULFATE 200 MG TAB PO SCH (09:19)
[2017-01-31] MEDS: RAMIPRIL 2.5 MG CAP PO SCH (09:19)
[2017-01-31] MEDS: ASPIRIN 81 MG CHEW TAB CHEW SCH (09:19)
[2017-01-31] MEDS: PANTOPRAZOLE SOD 40 MG DELAYED RELEASE TAB PO SCH (09:20)
[2017-01-31] MEDS: SODIUM CHLORIDE 0.9% FLUSH 10 ML FLUSH IV FLUSH SCH ×2 (09:20→19:25)
--- NOTE | 2017-01-31 09:33 | HHI.IDPN ---
Subjective Subjective Remarks Patient is a 72-year-old female, admitted to the hospital for further management of right diverticular abscess. Patient has had lower abdominal pain over the last 2 weeks. Is given Cipro and Flagyl with some mild improvement but the symptoms recurred. CT of the abdomen and pelvis was done and it showed an 8 cm pelvic abscess. Patient was admitted to the hospital for further management. She underwent CT-guided drainage of the abscess, and a drain was left in place. The initial output look like stool, currently output looks more blood tinge fluid. She continues to have lower abdominal pain although better. Patient states she's had some low-grade fevers and mild chills are to coming into the hospital. She is currently on Zosyn. She denies any nausea or vomiting. Has not had any respiratory or urinary complaints. Notes reviewed No fever No new complaint No rash or itching Had some loose stool Pain same C/S with MRSA Antibiotics Zosyn Vancomycin Lines PIV Past Medical History Previous episode of diverticulitis Systemic lupus Hypertension GERD Past Surgical History C section x 2 Hysterectomy Cholecystectomy Allergies: Coded Allergies: Sulfa (Verified Allergy, Severe, 02/24/06) Objective . Vital Signs Date Time Temp Pulse Resp B/P Pulse Ox O2 Delivery O2 Flow Rate FiO2 01/31/17 08:00 98.5 90 16 146/70 99 01/31/17 00:00 98.0 72 18 159/74 97 01/30/17 20:11 97.8 72 18 153/70 97 01/30/17 16:00 96.6 97 17 124/56 100 01/30/17 12:00 97.4 86 16 142/74 98 01/30/17 01/30/17 01/31/17 15:00 23:00 07:00 Intake Total 1400 ml 1457 ml 1110 ml Output Total 35 ml 10 ml Balance 1400 ml 1422 ml 1100 ml Intake Oral 1400 ml 480 ml 360 ml IV Total 977 ml 750 ml Drainage Total 35 ml 10 ml # Voids 5 2 2 # Bowel Movements 4 . Laboratory Tests Test 01/30/17 01/31/17 04:50 05:16 White Blood Count 3.1 TH/MM3 2.4 TH/MM3 Red Blood Count 3.71 MIL/MM3 3.54 MIL/MM3 Hemoglobin 10.2 GM/DL 9.8 GM/DL Hematocrit 30.1 % 29.0 % Mean Corpuscular Volume 81.2 FL 82.1 FL Mean Corpuscular Hemoglobin 27.4 PG 27.7 PG Mean Corpuscular Hemoglobin 33.8 % 33.7 % Concent Red Cell Distribution Width 15.1 % 15.0 % Platelet Count 203 TH/MM3 189 TH/MM3 Mean Platelet Volume 8.1 FL 8.0 FL Neutrophils (%) (Auto) 66.2 % 55.5 % Lymphocytes (%) (Auto) 23.2 % 31.3 % Monocytes (%) (Auto) 9.7 % 12.2 % Eosinophils (%) (Auto) 0.5 % 0.5 % Basophils (%) (Auto) 0.4 % 0.5 % Neutrophils # (Auto) 2.0 TH/MM3 1.3 TH/MM3 Lymphocytes # (Auto) 0.7 TH/MM3 0.7 TH/MM3 Monocytes # (Auto) 0.3 TH/MM3 0.3 TH/MM3 Eosinophils # (Auto) 0.0 TH/MM3 0.0 TH/MM3 Basophils # (Auto) 0.0 TH/MM3 0.0 TH/MM3 CBC Comment DIFF FINAL DIFF FINAL Differential Comment Laboratory Tests Test 01/30/17 01/30/17 04:50 19:03 Sodium Level 143 MEQ/L Potassium Level 3.6 MEQ/L Chloride Level 109 MEQ/L Carbon Dioxide Level 27.4 MEQ/L Anion Gap 7 MEQ/L Blood Urea Nitrogen 7 MG/DL Creatinine 0.89 MG/DL Estimat Glomerular Filtration 63 ML/MIN Rate Random Glucose 101 MG/DL Calcium Level 8.8 MG/DL Phosphorus Level 2.7 MG/DL Magnesium Level 2.3 MG/DL Albumin 2.8 GM/DL Lactic Acid Level 1.5 mmol/L Microbiology Date/Time Procedure Status Source Growth 01/28/17 15:00 Gram Stain - Final Resulted Abscess Other 01/28/17 15:00 Wound Culture - Preliminary Resulted S. Aureus [facility] Abscess Drainage CT 01/28/17 1318 Signed Impressions: Service Date/Time: January 14:10 - CONCLUSION: Uncomplicated CT guided drainage of the pelvic abscess. A total of 50 cc of greenish purulent material was aspirated. Sample was saved and sent to the lab for Gram stain, culture, and sensitivities. Sincere Roger MD Physical Exam GENERAL: awake and alert, not in respiratory distress. SKIN: Warm and dry. No generalized rash, no ecchymoses and no evidence of embolic lesions. HEAD: Atraumatic. Normocephalic. No temporal wasting, or tenderness. EYES: [place] conjunctiva. No petechia or hemorrhage. Pupils equal, round and reactive to light. Extraocular movements full and intact. No scleral icterus. No injection or drainage. EARS, NOSE AND THROAT: Nose without bleeding or purulent nasal discharge. No sinus tenderness. Mucous membranes pink and moist. No oral lesions noted. No exudate. No oral thrush. NECK: Trachea midline. Supple and not tender, no meningeal signs CARDIOVASCULAR: Regular rate and rhythm. No murmurs, rubs or gallops heard RESPIRATORY: Clear to auscultation. Breath sounds equal bilaterally. No rales , wheezing or rhonchi ABDOMEN: Soft, nondistended, bowel sounds present and normoactive, with tenderness in lower quadrants, no guarding. No rebound. No organomegaly. Midline scars compatible with surgical history BACK: has drain in place, reddish brown fluid in the tubing and bag, no odor EXTREMITIES: No clubbing, cyanosis, or edema. Has some swelling of her R wrist joint, not red, min tender, good ROM. No calf tenderness. Well perfused and warm. NEUROLOGICAL: Non-focal PSYCHIATRIC: Normal affect, calm and cooperative. LINE: No evidence of infection Assessment & Plan Remarks IMPRESSION Diverticular abscess, ?stool fistula - did not improve with Cipro and Flagyl likely due to development of complication of her diverticultis - C/S MRSA, unusual Known Lupus Neutropenia, ?due to meds, zosyn RECOMMENDATION Send new C/S Change Zosyn to Azactam and Flagyl (for continued GNR and anerobic coverage to cover GI lupillo) Continue vancomycin - for MRSA coverage Follow CBC - will ask lab to do manual diff Monitor progress Explained plan to patient D/W Akanksha Atkins MD Jan 31, 2017 09:33
--- NOTE | 2017-01-31 10:25 | HHI.PR ---
Subjective Remarks C/R Surg Pt examined, chart reviewed drain - little, less feculent roger PO +BM Objective - Vital Signs Date Time Temp Pulse Resp B/P Pulse Ox O2 Delivery O2 Flow Rate FiO2 01/31/17 08:00 98.5 90 16 146/70 99 01/27/17 19:11 Room Air Result Diagram: 01/31/17 0516 01/30/17 0450 Objective Remarks PE alert Abd - soft, min tenderness, no mass Rectal - drain post, no induration, little output, no air A/P Assessment and Plan Imp: stable after drainage pelvic abscess, apparent stool/fistula try to cont PO nutrition, if able to go home with drain before scheduling elective surgery ? MRSA - on vanco fu abscess drainage tomorrow watch WBC Shahram Mars MD Jan 31, 2017 10:25
[2017-01-31 12:00] VITALS: BP 128/64; PULSE 90; RESP 17; TEMP 96.3; O2SAT 99
[2017-01-31] MEDS: metroNIDAZOLE 500 MG TAB PO SCH ×2 (12:37→21:09)
[2017-01-31] MEDS: AZTREONAM INJ 1,000 MG in SODIUM CHLORIDE 0.9% INJ 100 ML IV SCH ×2 (12:38→17:37)
[2017-01-31 13:57] LABS: ALT (GPT) 29 U/L (10-53); ANION GAP 7 MEQ/L (5-15); AST (GOT) 21 U/L (15-37); BICARBONATE 24.6 MEQ/L (21.0-32.0); BLOOD UREA NITROGEN 8 MG/DL (7-18); CHLORIDE 110 MEQ/L (98-107); GLOMERULAR FILTRATION RATE 66 ML/MIN (>89); POTASSIUM 3.6 MEQ/L (3.5-5.1); SODIUM (NA) 142 MEQ/L (136-145)
[2017-01-31 13:59] LABS: ALKALINE PHOSPHATASE 43 U/L (45-117); TOTAL BILIRUBIN ADULT 0.4 MG/DL (0.2-1.0)
[2017-01-31 16:00] VITALS: BP 146/69; PULSE 90; RESP 16; TEMP 97.3; O2SAT 100
--- NOTE | 2017-01-31 17:25 | HHI.PR ---
Subjective Remarks Patient seen this morning around 11 AM. Says she is feeling a little better than yesterday. No abdominal pain. Denies any chest pain or shortness of breath. Still small loose bowel movements. Objective Vital Signs Date Time Temp Pulse Resp B/P Pulse Ox O2 Delivery O2 Flow Rate FiO2 01/31/17 16:00 97.3 90 16 146/69 100 01/31/17 12:00 96.3 90 17 128/64 99 01/31/17 08:00 98.5 90 16 146/70 99 01/31/17 00:00 98.0 72 18 159/74 97 01/30/17 20:11 97.8 72 18 153/70 97 I/O 01/30/17 01/30/17 01/30/17 01/31/17 01/31/17 01/31/17 07:00 15:00 23:00 07:00 15:00 23:00 Intake Total 100 ml 1400 ml 1457 ml 1110 ml 1080 ml Output Total 30 ml 35 ml 10 ml 20 ml Balance 70 ml 1400 ml 1422 ml 1100 ml 1060 ml Intake Oral 1400 ml 480 ml 360 ml 1080 ml IV Total 100 ml 977 ml 750 ml Drainage Total 30 ml 35 ml 10 ml 20 ml # Voids 5 2 2 6 # Bowel Movements 4 1 Result Diagram: 01/31/17 0516 01/31/17 1255 Imaging Last Impressions Abscess Drainage CT 01/28/17 1318 Signed Impressions: Service Date/Time: January 14:10 - CONCLUSION: Uncomplicated CT guided drainage of the pelvic abscess. A total of 50 cc of greenish purulent material was aspirated. Sample was saved and sent to the lab for Gram stain, culture, and sensitivities. Sincere Roger MD Objective Remarks GENERAL: patient sitting up in chair at bedside. appears comfortable. Alert and oriented 3. SKIN: Warm and dry. HEAD: Normocephalic. EYES: No scleral icterus. No injection or drainage. NECK: Supple, trachea midline. No JVD or lymphadenopathy. CARDIOVASCULAR: Regular rate and rhythm without murmurs, gallops, or rubs. RESPIRATORY: Breath sounds equal bilaterally. No accessory muscle use. GASTROINTESTINAL: Abdomen soft, nontender Percutaneous drain with what appears to be stool MUSCULOSKELETAL: No cyanosis, or edema. BACK: Nontender without obvious deformity. No CVA tenderness. A/P Assessment and Plan =====01/31/17==== //Worsening leukopenia with neutropenia absolute neutrophil count 1.3. Although this is likely secondary to infection, Zosyn discontinued and replaced with aztreonam as per infectious disease. Appreciate assistance. Continue to monitor -MRSA Sensitivities reviewed. Sensitive to vancomycin -Repeat culture 01/30 reviewed with mixed lupillo, yeast. -Hold Plaquenil. This is a pleasant 72-year-old female patient with past medical history which includes diverticulitis, systemic lupus on Actonel mild hypertension and GERD. Patient reports for the past 2 weeks she has had severe stabbing generalized abdominal pain. Patient has completed 10 days of Cipro and Flagyl by mouth as outpatient antibiotics. abdomen/pelvis CT which will was done today showed 8cm midline diverticular abscess //Abdominal pain //Diverticulitis with abscess //Failed outpatient therapy //Suspected sepsis. -Status post IR drain placement with culture 01/28. -01/30. Leukopenia. Tachycardia. MRSA abscess. Add vancomycin. -01/31. Switch from Zosyn to aztreonam due to leukopenia. -Continue aztreonam, vanco -Infectious disease, GI following. Appreciate assistance. -Follow up repeat cultures from 01/30. //Systemic Lupus- chronic -01/31. Hold plaquenill due to anemia, leukopenia //HTN- chronic Continue home medication ramipril 2.5 mg by mouth //GERD- chronic continue home medication //DVT prophylaxis with SCDs Discharge Planning on ABX for MRSA diverticular abcess. -we'll need infectious disease, general surgery clearance prior to discharge Elroy Isaac MD Jan 31, 2017 17:25
[2017-01-31 20:24] VITALS: BP 139/65; PULSE 88; RESP 17; TEMP 97.3; O2SAT 99
[2017-02-01] MEDS: VANCOMYCIN 1,000 MG/NS 250 ML IV SCH ×4 (00:06→17:15)
[2017-02-01 00:10] VITALS: BP 141/69; PULSE 86; RESP 18; TEMP 98.3; O2SAT 97
[2017-02-01] MEDS: AZTREONAM INJ 1,000 MG in SODIUM CHLORIDE 0.9% INJ 100 ML IV SCH ×3 (01:42→17:16)
[2017-02-01] MEDS: metroNIDAZOLE 500 MG TAB PO SCH ×3 (05:26→23:04)
[2017-02-01 06:06] LABS: AUTOMATED NEUTROPHIL # 1.5 TH/MM3 (1.8-7.7); BASOPHIL % 0.6 % (0.0-2.0); EOSINOPHIL % 0.3 % (0.0-4.0); HEMATOCRIT 28.1 % (35.0-46.0); HEMO FLAGS DIFF FINAL; LYMPH % 26.8 % (9.0-44.0); LYMPHOCYTE # 0.7 TH/MM3 (1.0-4.8); MEAN CELL VOLUME 81.4 FL (80.0-100.0); MEAN CORPUSCULAR HEMOGLOBIN 28.2 PG (27.0-34.0); MEAN CORPUSCULAR HGB CONC 34.6 % (32.0-36.0); NEUT % 60.3 % (16.0-70.0); PLATELET COUNT 190 TH/MM3 (150-450); RED BLOOD COUNT 3.46 MIL/MM3 (4.00-5.30); WHITE BLOOD COUNT 2.6 TH/MM3 (4.0-11.0)
[2017-02-01 08:00] VITALS: BP 145/73; PULSE 85; RESP 20; TEMP 98.3; O2SAT 99
[2017-02-01] MEDS: SODIUM CHLORIDE 0.9% FLUSH 10 ML FLUSH IV FLUSH SCH ×2 (09:00→23:04)
[2017-02-01] MEDS: ASPIRIN 81 MG CHEW TAB CHEW SCH (10:00)
[2017-02-01] MEDS: PANTOPRAZOLE SOD 40 MG DELAYED RELEASE TAB PO SCH (10:00)
[2017-02-01] MEDS: RAMIPRIL 2.5 MG CAP PO SCH (10:00)
[2017-02-01] MEDS: D5-1/2 NS + KCL 20 MEQ INJ 1,000 ML IV SCH (10:01)
[2017-02-01 12:00] VITALS: BP 127/61; PULSE 99; RESP 18; TEMP 97; O2SAT 99
[2017-02-01] MEDS: FLUCONAZOLE 100 MG TAB PO SCH (14:35)
[2017-02-01 16:00] VITALS: BP 132/70; PULSE 84; RESP 18; TEMP 96.7; O2SAT 99
--- NOTE | 2017-02-01 17:50 | RADRPT ---
EXAM DATE/TIME: 02/01/2017 17:30 [facility] COMPARISON: CT ASSISTED ABSCESS DRAIN, January 28, 2017, 14:10. INDICATIONS : Status post abscess drainage. ORAL CONTRAST: No oral contrast ingested. RADIATION DOSE: 13.96 CTDIvol (mGy) MEDICAL HISTORY : Lupus. SURGICAL HISTORY : Cholecystectomy. section.Hysterectomy. ENCOUNTER: Subsequent ACUITY: 2 days PAIN SCALE: 7/10 LOCATION: abdomen TECHNIQUE: Volumetric scanning of the abdomen and pelvis was performed. Using automated exposure control and adjustment of the mA and/or kV according to patient size, radiation dose was kept as low as reasonably achievable to obtain optimal diagnostic quality images. DICOM format image data is av ailable electronically for review and comparison. FINDINGS: The lung base is are clear. There is no pericardial effusion. The liver, spleen, pancreas, adrenals and kidneys are unremarkable. In the pelvis the abscess drainage catheter is in good position imaging from [place] and posterior appr [facility]. Minimal residual abscess remains around the catheter. The minimal irrigation would be of benefit. CONCLUSION: Abscess drainage catheter in good position. Arrangements have been made to gently ir rigate the catheter. Puneet Gan MD FACR on February 01, 2017 at 17:44 Board Certified Radiologist. This report was verified electronically.
[2017-02-01 19:45] VITALS: BP 170/88; PULSE 92; RESP 20; TEMP 97.6; O2SAT 100
[2017-02-01 23:45] VITALS: BP 185/81; PULSE 89; RESP 20; TEMP 97.7; O2SAT 100
--- NOTE | 2017-02-01 23:47 | HHI.PR ---
Subjective Remarks Patient seen today around 10 AM. Says she is feeling all right. Asking about going home. Denies any chest pain or shortness of breath. Objective Vital Signs Date Time Temp Pulse Resp B/P Pulse Ox O2 Delivery O2 Flow Rate FiO2 02/01/17 19:45 97.6 92 20 170/88 100 02/01/17 16:00 96.7 84 18 132/70 99 02/01/17 12:00 97.0 99 18 127/61 99 02/01/17 08:00 98.3 85 20 145/73 99 02/01/17 00:10 98.3 86 18 141/69 97 I/O 01/31/17 01/31/17 01/31/17 02/01/17 02/01/17 02/01/17 07:00 15:00 23:00 07:00 15:00 23:00 Intake Total 1110 ml 1080 ml 1152 ml 1418 ml 240 ml 450 ml Output Total 10 ml 20 ml 25 ml 20 ml 800 ml Balance 1100 ml 1060 ml 1127 ml 1398 ml 240 ml -350 ml Intake Oral 360 ml 1080 ml 480 ml 360 ml 240 ml 450 ml IV Total 750 ml 672 ml 1058 ml Output Urine Total 800 ml Drainage Total 10 ml 20 ml 25 ml 20 ml # Voids 2 6 2 2 2 # Bowel Movements 1 Result Diagram: 02/01/17 0520 01/31/17 1255 Objective Remarks GENERAL: patient sitting up in chair at bedside. appears comfortable. Alert and oriented 3. SKIN: Warm and dry. HEAD: Normocephalic. EYES: No scleral icterus. No injection or drainage. NECK: Supple, trachea midline. No JVD or lymphadenopathy. CARDIOVASCULAR: Regular rate and rhythm without murmurs, gallops, or rubs. RESPIRATORY: Breath sounds equal bilaterally. No accessory muscle use. GASTROINTESTINAL: Abdomen soft, nontender Percutaneous drain with what appears to be maroon fluid. Blood/pus/stool MUSCULOSKELETAL: No cyanosis, or edema. BACK: Nontender without obvious deformity. No CVA tenderness. A/P Assessment and Plan =====01/31/17==== //Worsening leukopenia with neutropenia absolute neutrophil count 1.3. Although this is likely secondary to infection, Zosyn discontinued and replaced with aztreonam as per infectious disease. Appreciate assistance. Continue to monitor -MRSA Sensitivities reviewed. Sensitive to vancomycin -Repeat culture 01/30 reviewed with mixed lupillo, yeast. -Hold Plaquenil. This is a pleasant 72-year-old female patient with past medical history which includes diverticulitis, systemic lupus on Actonel mild hypertension and GERD. Patient reports for the past 2 weeks she has had severe stabbing generalized abdominal pain. Patient has completed 10 days of Cipro and Flagyl by mouth as outpatient antibiotics. abdomen/pelvis CT which will was done today showed 8cm midline diverticular abscess //Abdominal pain //Diverticulitis with abscess //Failed outpatient therapy //Suspected sepsis. -Status post IR drain placement with culture 01/28. -01/30. Leukopenia. Tachycardia. MRSA abscess. Add vancomycin. -01/31. Switch from Zosyn to aztreonam due to leukopenia. -Continue aztreonam, vanco -Infectious disease, GI following. Appreciate assistance. -Follow up repeat cultures from 01/30. //Systemic Lupus- chronic -01/31. Hold plaquenill due to anemia, leukopenia //HTN- chronic Continue home medication ramipril 2.5 mg by mouth //GERD- chronic continue home medication //DVT prophylaxis with SCDs Discharge Planning on ABX for MRSA diverticular abcess. -we'll need infectious disease, general surgery clearance prior to discharge Elroy Isaac MD Feb 01, 2017 23:47
[2017-02-02] MEDS: AZTREONAM INJ 1,000 MG in SODIUM CHLORIDE 0.9% INJ 100 ML IV SCH (01:54)
[2017-02-02 03:45] VITALS: BP 176/79; PULSE 90; RESP 20; TEMP 99; O2SAT 98
[2017-02-02] MEDS: metroNIDAZOLE 500 MG TAB PO SCH (05:45)
[2017-02-02 07:15] LABS: AUTOMATED NEUTROPHIL # 2.6 TH/MM3 (1.8-7.7); BASOPHIL % 0.3 % (0.0-2.0); EOSINOPHIL % 0.3 % (0.0-4.0); HEMATOCRIT 31.1 % (35.0-46.0); HEMO FLAGS DIFF FINAL; LYMPH % 15.4 % (9.0-44.0); LYMPHOCYTE # 0.5 TH/MM3 (1.0-4.8); MEAN CELL VOLUME 81.9 FL (80.0-100.0); MEAN CORPUSCULAR HEMOGLOBIN 27.9 PG (27.0-34.0); MONO % 9.8 % (0.0-8.0); NEUT % 74.2 % (16.0-70.0); PLATELET COUNT 216 TH/MM3 (150-450); RED BLOOD COUNT 3.79 MIL/MM3 (4.00-5.30); RED CELL DISTRIBUTION WIDTH 14.9 % (11.6-17.2); WHITE BLOOD COUNT 3.5 TH/MM3 (4.0-11.0)
[2017-02-02 08:00] VITALS: BP 148/83; PULSE 88; RESP 18; TEMP 97.8; O2SAT 99
[2017-02-02] MEDS: ASPIRIN 81 MG CHEW TAB CHEW SCH (09:00)
[2017-02-02] MEDS: SODIUM CHLORIDE 0.9% FLUSH 10 ML FLUSH IV FLUSH SCH (09:00)
[2017-02-02] MEDS: FLUCONAZOLE 100 MG TAB PO SCH (09:00)
[2017-02-02] MEDS: RAMIPRIL 2.5 MG CAP PO SCH (09:00)
[2017-02-02] MEDS: PANTOPRAZOLE SOD 40 MG DELAYED RELEASE TAB PO SCH (09:00)
[2017-02-02] MEDS ORDERED: DIFL100T PO (10:59)
[2017-02-02] MEDS ORDERED: DOXY100C PO (10:59)
[2017-02-02] MEDS ORDERED: PHARMACY ORDERED LAB ONE (11:45)
[2017-02-02 12:00] VITALS: BP 127/64; PULSE 100; RESP 18; TEMP 97.1; O2SAT 100
--- NOTE | 2017-02-02 12:00 | HHI.FF ---
Face to Face Verification Diagnosis: (1) Diverticulitis (2) Abscess (3) MRSA (methicillin resistant staph aureus) culture positive Home Health Nursing Order: Wound care and dressing changes Instructions: has right posterior flank catheter draining pus from diverticular abscess. need daily dressing changes with wound monitoring and education. I have seen patient Verna Alvarado on 02/02/17. My clinical findings support the need for the requested home health care services because: Limited ability to care for self I certify that my clinical findings support that this patient is homebound because: Unsafe to leave home unassisted Elroy Isaac MD Feb 02, 2017 12:00
== END 2017-02-02 15:22 | disposition home or self-care (01) | DRG 392 ==
LOC: NEPC 14:50 → NEDA 18:25 → N07B 20:24
PROVIDERS: ADMIT Internal Medicine; ATTEND Internal Medicine
PROC: 0J9C3ZZ Drainage of Pelvic Region Subcutaneous Tissue and Fascia, Percutaneous Approach (ICD-10-PCS; principal; 2017-02-01)
DX: K57.80 Diverticulitis of intestine, part unspecified, with perforation and abscess without bleeding (principal); M32.9 Systemic lupus erythematosus, unspecified; L02.91 Cutaneous abscess, unspecified; D70.9 Neutropenia, unspecified; B95.62 Methicillin resistant Staphylococcus aureus infection as the cause of diseases classified elsewhere; D64.9 Anemia, unspecified; I10 Essential (primary) hypertension; K21.9 Gastro-esophageal reflux disease without esophagitis; N73.9 Female pelvic inflammatory disease, unspecified; Z87.891 Personal history of nicotine dependence
CPT/HCPCS: 74176; 75989; 80048; 80053; 80069; 81001; 83605; 83735; 85025; 85610; 86403; 87040; 87070; 87106; 87147; 87186; 87205; C1729; C1769; J2250; J2543; J3010; J3370; J3480; J7040; J7050

== ENCOUNTER 2017-03-25 13:05 | Inpatient (IN) | payer MEDICARE, BC ==
[~2017-03-25] VITALS: Ht 167.6 cm; Wt 66.5 kg
[~2017-03-25 13:05] MED LIST: ASPI81CH CHEW; LANS30CA PO; MULTTAB67 PO; PLAQ200T PO; RAMI2.5C PO; VITA100036 PO
[2017-04-06] MEDS ORDERED: ePHEDrine/NS 25 MG/5 ML SYR IV ONE (12:00)
[2017-04-06] MEDS ORDERED: PROPOFOL 200 MG/20 ML AMP IV ONE (12:00)
[2017-04-06] MEDS ORDERED: NEOSTIGMINE 3 MG/3 ML SYR IV ONE (12:00)
[2017-04-06] MEDS ORDERED: ONDANSETRON HCL 4 MG/2 ML VIAL IV PUSH ONE (12:00)
[2017-04-06] MEDS ORDERED: LACTATED RINGER'S 1000 ML INJ 1,000 ML IV ONE (12:00)
[2017-04-06] MEDS ORDERED: metroNIDAZOLE 500 MG INJ 100 ML IV ONE (12:55)
[2017-04-06] MEDS ORDERED: ceFAZolin INJ 1,000 MG VIAL ONE (12:55)
[2017-04-06] MEDS ORDERED: SODIUM CHLORIDE 0.9% INJ 100 ML ONE (12:56)
[2017-04-06] MEDS ORDERED: SODIUM CHLORID 0.9% 500 ML IV PRN (13:00)
[2017-04-06] MEDS ORDERED: METOPROLOL TARTRATE 25 MG TAB PO PRN (13:00)
[2017-04-06] MEDS ORDERED: INSULIN HUMAN REGULAR 1,000 UNITS/10 ML VIAL SQ PRN (13:00)
[2017-04-06] MEDS ORDERED: POVIDONE IODINE 5% (ANTISEPSIS KIT) 4 APPLICATIONS EACH NARE PRN (13:00)
[2017-04-06] MEDS ORDERED: ALVIMOPAN 12 MG CAPSULE - On Call PO SCH (13:00)
[2017-04-06] MEDS ORDERED: LACTATED RINGER'S 1000 ML IV PRN (13:00)
[2017-04-06] MEDS ORDERED: CHLORHEXIDINE GLUCONATE 2 % 1 PACK (2 CLOTHS) TOPICAL PRN (13:00)
[2017-04-06] MEDS ORDERED: ceFAZolin 1,000 MG/NS 100 ML IV SCH ×2 (13:30)
[2017-04-06] MEDS ORDERED: METRONIDAZOLE 500 MG/100 ML ISONTONIC SOLN IV SCH (13:30)
--- NOTE | 2017-04-06 13:46 | PD.HP.UP ---
H&P Update Note The Pre-Admit History and Physical Examination regarding the above named patient was reviewed (including, but not limited to, vital signs, heart, lungs, co-morbid conditions), and upon re-examination it is noted that: the patient's condition has not significantly changed since the last examination. Shahram Mars MD Apr 06, 2017 13:46
[2017-04-06] MEDS ORDERED: DEXT 5%-NACL 0.9% 1000 ML INJ 1,000 ML IV SCH (14:00)
[2017-04-06] MEDS ORDERED: BUPIVACAINE HCL PF 0.5% 30 ML VIAL ONE (14:01)
[2017-04-06] MEDS ORDERED: GLUCAGON 1 MG/ML VIAL ONE (14:01)
[2017-04-06] MEDS ORDERED: ACETAMINOPHEN 1000 MG/100 ML 100 ML IV ONE (15:05)
--- NOTE | 2017-04-06 15:10 | PD.OP ---
Operative Report Date of Surgery: Apr 06, 2017 Preoperative Diagnosis: (1) Diverticulitis Postoperative Diagnosis: (1) Diverticulitis Procedure: Cystoscopy and placement of bilateral ureteral catheters Anesthesia: General Surgeon: Gage Hearn Bung Sewer(s): None Operation and Findings: Indication for procedure: Consult with intraoperatively to pass bilateral ureteral catheters to aid in visualization of this patient's ureters during her colorectal procedure. Urologic surgery procedures in detail: Concurrent with the colorectal surgeons I proceeded with cystoscopy and placement of bilateral ureteral catheters as follows: initially cystoscopic evaluation was performed utilizing the rigid cystoscope with the 30 lens and 20 [place] sheath. Both right and left ureteral orifices in correct anatomic position effluxing clear yellow urine. I then passed a sensor probe 0.35 wire up the patient's left ureter until a small amount of resistance was met. I then passed a 6 [place] open-ended catheter 25 cm in a cephalad direction over the wire and the wire was subsequently withdrawn. The wire was next introduced through a secondary site via the cystoscope and in similar fashion the contralateral side was accomplished. The bladder was then drained of all irrigant fluid and the cystoscope and wire were withdrawn. A 16 [place] 10 cc Peace catheter was then placed and the open-ended ureteral catheters were anchored to the Peace via a connector. All 3 catheters were then placed to gravity drainage. This completes urologic surgery portion of combined procedures on this patient. Gage Hearn MD Apr 06, 2017 15:10
[2017-04-06 15:36] LABS: MRSA PCR NEGATIVE (NEGATIVE); STAPH AUREUS PCR NEGATIVE (NEGATIVE)
[2017-04-06] MEDS ORDERED: DO NOT ADM ANY ANTICOAGULANT DRUGS PRN (16:58)
[2017-04-06] MEDS ORDERED: ACETAMINOPHEN 325 MG TAB PO PRN (17:00)
[2017-04-06] MEDS ORDERED: POTASSIUM CHLOR 20 MEQ PREMIX 100 ML IV PRN (17:00)
[2017-04-06] MEDS ORDERED: ACETAMINOPHEN/HYDROcodone 325 MG/5 MG TAB PO PRN (17:00)
[2017-04-06] MEDS ORDERED: ENALAPRILAT 1.25 MG/ML VIAL IV PRN (17:00)
[2017-04-06] MEDS ORDERED: BENZOCAINE 6 MG/MENTHOL 10 MG LOZENGE BUCCAL PRN (17:00)
[2017-04-06] MEDS ORDERED: POTASSIUM CHLOR 40 MEQ PREMIX 100 ML IV PRN (17:00)
[2017-04-06] MEDS ORDERED: NALOXONE HCL 0.4 MG/ML AMP IV PRN (17:00)
[2017-04-06] MEDS ORDERED: Post-op Orders (for Pharmacy) MISC XX ONE (17:00)
[2017-04-06] MEDS ORDERED: SODIUM CHLORIDE 0.9% FLUSH 5 ML FLUSH IVF PRN (17:00)
[2017-04-06] MEDS ORDERED: MORPHINE SULFATE 8 MG/ML INJ ONE (17:11)
[2017-04-06] MEDS ORDERED: *ONDANSETRON 4 MG VIAL PERIprocedural Use ONLY ONE (17:43)
[2017-04-06] MEDS: KETOROLAC TROMETHAMINE 30 MG/ML (IVP) VIAL IVP PRN (17:45)
[2017-04-06] MEDS ORDERED: *ENALAPRILAT 1.25 MG/ML VIAL PERIprocedural Use ONLY ONE (17:47)
[2017-04-06] MEDS: D5-NS + KCL 20 MEQ INJ 1,000 ML IV SCH ×2 (18:00→23:03)
[2017-04-06] MEDS: MORPHINE SULFATE 30 MG/30 ML PCA IV SCH (18:13)
[2017-04-06 18:52] VITALS: BP 169/93; PULSE 72; RESP 20; O2SAT 99
[2017-04-06 19:00] VITALS: PULSE 84
[2017-04-06 20:00] VITALS: BP 152/86; PULSE 72; PULSE 80; TEMP 97.4; O2SAT 100
[2017-04-06 21:00] VITALS: PULSE 76
[2017-04-06] MEDS: SODIUM CHLORIDE 0.9% FLUSH 5 ML FLUSH IVF SCH (21:00)
[2017-04-06] MEDS: METOCLOPRAMIDE HCL 10 MG/2 ML VIAL IVS SCH (21:02)
[2017-04-06] MEDS: ONDANSETRON HCL 4 MG/2 ML VIAL IV PRN (21:02)
[2017-04-06] MEDS: metroNIDAZOLE 500 MG INJ 100 ML IV SCH (21:03)
[2017-04-06] MEDS: PCA - TOTAL MG MORPHINE DELIVERED PER SHIFT SCH (21:59)
[2017-04-06 22:00] VITALS: PULSE 74
[2017-04-06 23:00] VITALS: PULSE 78
[2017-04-06] MEDS: ENALAPRILAT 2.5 MG/2 ML VIAL IV PRN (23:03)
[2017-04-07] VITALS (24 sets, daily range): BP systolic 126–167; BP diastolic 57–81; PULSE 64–96; RESP 18–20; TEMP 97.6–98.7; O2SAT 98–100
[2017-04-07] MEDS: metroNIDAZOLE 500 MG INJ 100 ML IV SCH ×2 (05:07→13:11)
[2017-04-07] MEDS: D5-NS + KCL 20 MEQ INJ 1,000 ML IV SCH ×2 (05:08→14:27)
[2017-04-07] MEDS: PCA - TOTAL MG MORPHINE DELIVERED PER SHIFT SCH ×3 (06:00→22:00)
[2017-04-07 06:54] LABS: AUTOMATED NEUTROPHIL # 5.5 TH/MM3 (1.8-7.7); HEMATOCRIT 29.6 % (35.0-46.0); HEMO FLAGS DIFF FINAL; LYMPH % 4.5 % (9.0-44.0); LYMPHOCYTE # 0.3 TH/MM3 (1.0-4.8); MEAN CORPUSCULAR HEMOGLOBIN 30.4 PG (27.0-34.0); MEAN CORPUSCULAR HGB CONC 34.2 % (32.0-36.0); MONO % 6.5 % (0.0-8.0); PLATELET COUNT 186 TH/MM3 (150-450); RED BLOOD COUNT 3.33 MIL/MM3 (4.00-5.30); RED CELL DISTRIBUTION WIDTH 16.2 % (11.6-17.2); WHITE BLOOD COUNT 6.1 TH/MM3 (4.0-11.0)
[2017-04-07] MEDS: KETOROLAC TROMETHAMINE 30 MG/ML (IVP) VIAL IVP PRN (07:04)
[2017-04-07 07:24] LABS: BICARBONATE 21.3 MEQ/L (21.0-32.0); POTASSIUM 4.9 MEQ/L (3.5-5.1)
[2017-04-07 07:39] LABS: CALCIUM-PROTEIN CORRECTED 7.5 MG/DL (8.5-10.1)
[2017-04-07] MEDS: SODIUM CHLORIDE 0.9% FLUSH 5 ML FLUSH IVF SCH ×2 (09:00→20:46)
[2017-04-07] MEDS: PANTOPRAZOLE SODIUM 40 MG VIAL IVP SCH (09:00)
[2017-04-07] MEDS: METOCLOPRAMIDE HCL 10 MG/2 ML VIAL IVS SCH ×2 (09:08→20:46)
[2017-04-07] MEDS: PANTOPRAZOLE SOD 40 MG DELAYED RELEASE TAB PO SCH (09:08)
[2017-04-07] MEDS: ALVIMOPAN 12 MG CAPSULE - Post-op dosing PO SCH ×2 (09:09→20:46)
[2017-04-07] MEDS: RAMIPRIL 2.5 MG CAP PO SCH (09:09)
[2017-04-07] MEDS: ONDANSETRON HCL 4 MG/2 ML VIAL IV PRN (10:40)
[2017-04-07] MEDS: MORPHINE SULFATE 30 MG/30 ML PCA IV SCH (16:15)
[2017-04-07] MEDS ORDERED: ALVIMOPAN 12 MG CAPSULE PO SCH (21:00)
--- NOTE | 2017-04-07 21:31 | HHI.PR ---
Subjective Remarks C/R Surg POD #1 afebrile, VSS UO good stent dc'd MEDARDO serous Objective - Vital Signs Date Time Temp Pulse Resp B/P (MAP) Pulse Ox O2 Delivery O2 Flow Rate FiO2 04/07/17 18:25 19 04/07/17 18:00 75 04/07/17 15:00 147/57 (87) 99 04/07/17 11:00 97.8 04/07/17 08:26 Nasal Cannula 2.00 Result Diagram: 04/07/17 0537 04/07/17 0537 Medications and IVs PE alert Abd - soft, dressing dry, MEDARDO min A/P Assessment and Plan Imp: stable post-op OOB decr IVF tx to floor Shahram Mars MD Apr 07, 2017 21:31
[2017-04-08] VITALS (9 sets, daily range): BP systolic 138–185; BP diastolic 65–87; PULSE 94–118; RESP 17–20; TEMP 97.8–99.2; O2SAT 96–99
[2017-04-08] MEDS: ENALAPRILAT 2.5 MG/2 ML VIAL IV PRN ×3 (00:54→11:38)
[2017-04-08] MEDS: D5-NS + KCL 20 MEQ INJ 1,000 ML IV SCH ×3 (03:07→17:09)
[2017-04-08] MEDS: KETOROLAC TROMETHAMINE 30 MG/ML (IVP) VIAL IVP PRN ×2 (04:13→11:42)
[2017-04-08] MEDS: PCA - TOTAL MG MORPHINE DELIVERED PER SHIFT SCH ×3 (06:00→21:39)
[2017-04-08 06:59] LABS: AUTOMATED NEUTROPHIL # 5.8 TH/MM3 (1.8-7.7); BASOPHIL % 0.1 % (0.0-2.0); EOSINOPHIL % 0.1 % (0.0-4.0); HEMATOCRIT 27.5 % (35.0-46.0); HEMO FLAGS DIFF FINAL; LYMPH % 6.7 % (9.0-44.0); LYMPHOCYTE # 0.4 TH/MM3 (1.0-4.8); MEAN CORPUSCULAR HEMOGLOBIN 29.2 PG (27.0-34.0); NEUT % 88.1 % (16.0-70.0); PLATELET COUNT 152 TH/MM3 (150-450); RED BLOOD COUNT 3.19 MIL/MM3 (4.00-5.30); RED CELL DISTRIBUTION WIDTH 15.9 % (11.6-17.2); WHITE BLOOD COUNT 6.5 TH/MM3 (4.0-11.0)
[2017-04-08 07:00] LABS: BICARBONATE 23.3 MEQ/L (21.0-32.0); POTASSIUM 4.4 MEQ/L (3.5-5.1)
[2017-04-08] MEDS: PANTOPRAZOLE SODIUM 40 MG VIAL IVP SCH (07:40)
[2017-04-08] MEDS: ALVIMOPAN 12 MG CAPSULE - Post-op dosing PO SCH ×2 (07:40→21:39)
[2017-04-08] MEDS: METOCLOPRAMIDE HCL 10 MG/2 ML VIAL IVS SCH ×2 (07:41→21:39)
[2017-04-08] MEDS: RAMIPRIL 2.5 MG CAP PO SCH (07:41)
[2017-04-08] MEDS: PANTOPRAZOLE SOD 40 MG DELAYED RELEASE TAB PO SCH (07:41)
[2017-04-08] MEDS: SODIUM CHLORIDE 0.9% FLUSH 5 ML FLUSH IVF SCH ×2 (07:42→21:00)
--- NOTE | 2017-04-08 12:18 | MP ---
cc: JORGE DIEHL M.D. DATE OF SURGERY 04/06/2017 PREOPERATIVE DIAGNOSIS Chronic diverticular disease with obstruction and abscess. PROCEDURE Exploratory laparotomy with proctosigmoidectomy, low pelvic anastomosis, intraoperative colonoscopy and omental flap. POSTOPERATIVE DIAGNOSES 1. Extensive diverticular disease with abscess formation and obstruction. 2. Normal postop colonoscopy. SURGEON Dr. Diehl ASSESSMENT Dr. Fabián Blackman PROCEDURE The patient was placed in the supine position. After adequate general anesthesia, her legs were placed in Bridger stirrups and supported appropriately. The abdomen and perineum were then prepped with Betadine solution and draped in the usual sterile fashion. With Dr. Blackman's assistance, the abdomen was opened through a midline incision. Upon entering the abdominal cavity, the parietal peritoneum was taken down. Several loops of bowel had to be dissected free from the peritoneum and mobilized up out of the pelvis. Exploration revealed an inflammatory mass in the rectosigmoid which was stuck down to the left pelvic sidewall. The bowel was twisted and kinked in scar tissue and very narrow in caliber. The proximal colon was palpated very carefully and felt to be pretty unremarkable. The small bowel was run from the ligament of Treitz down to ileocecal valve and felt to be normal. The liver was unremarkable. The stomach and duodenum were normal. The uterus and ovaries did appear to be surgically absent. The great vessels were of normal caliber and fairly soft. First the sigmoid colon was mobilized medially by dividing along the white line of Toldt. The left ureteral stent was easily palpated and preserved. Dissection then proceeded up the left gutter freeing the left colon off the retroperitoneum, taking down the splenic flexure, entering the lesser sac and mobilizing the gastrocolic omentum off the transverse colon. The right retroperitoneal space was then opened and the bowel dissected off the presacral fascia. The pedicle for the superior hemorrhoidal vessel was identified and divided between Jeri's obtaining hemostasis with Vicryl ties. After full mobilization down to the pelvic floor, dissection proceeded anteriorly trying to open up the cul-de-sac. This was very difficult due to inflammation and rather dense scar tissue. Eventually a plane was developed freeing the bowel off the presacral space and the lateral rectal stalks were freed mobilizing the bowel up out of the pelvis until the rectal tissues were more pliable. At a point in the proximal rectum, the mesorectum was taken and the bowel finally divided using a TA60 stapler and a Landon clamp. The bowel was then fully mobilized after taking the superior hemorrhoidal vessels. There appeared to be enough length to reach the Ion pouch without tension and with good blood supply dividing the marginal artery at the appropriate point, finally dividing the bowel using a pursestring suture device and a Landon clamp in the midsigmoid. The end of the bowel was sized to accept an EEA stapling anvil and this was secured with a pursestring suture. Dr. Blackman inserted the EEA stapling instrument transanally under direct vision it was brought up to the end of the rectal pouch, the trocar advanced, the stapler was reassembled in the bowel line properly, the stapler closed and fired. Upon withdrawal two complete doughnuts of tissue were seen. Dr. Blackman then inserted the colonoscope and under direct vision with abdominal assistance it was passed around toward the cecum, the ileocecal valve appeared to be normal. There was a fair amount of stool lining the cecal glasgow, however. The scope was gradually withdrawn noting no other mucosal inflammation or polyps throughout the distal colon. In the pelvis the anastomosis was insufflated and felt to be airtight. The abdomen was then irrigated copiously with normal saline. Adequate hemostasis was achieved at all sites. A Darren-Jesus drain was placed down into the presacral space and brought up through a stab wound in the right lower quadrant, secured to the skin with a nylon suture. The omentum was passed down the left gutter and wrapped around the anastomosis trying to separate it from the anterior structures. The midline incision was then closed anatomically using a #1 PDS suture to reapproximate the midline fascia. The subcutaneous tissue was irrigated copiously and the skin closed with a running subcuticular Vicryl suture. The wound area was washed with normal saline and dried, sterile dressing of Telfa and gauze applied. The patient tolerated the procedure quite well and was brought to recovery room in stable condition. Sponge and needle counts were correct at the end of the procedure. MD JUAN ALBERTO Farmer/PRIYANKA /10:23 PM /12:03 PM
--- NOTE | 2017-04-08 17:50 | HHI.PR ---
Subjective Remarks C/R Surg POD #2 afebrile, VSS UO good stent dc'd MEDARDO serous Objective - Vital Signs Date Time Temp Pulse Resp B/P (MAP) Pulse Ox O2 Delivery O2 Flow Rate FiO2 04/08/17 16:00 98.4 107 17 144/67 (92) 98 04/07/17 08:26 Nasal Cannula 2.00 Result Diagram: 04/08/17 0615 04/08/17 0615 Objective Remarks PE alert Abd - soft, min tympany, wound dry A/P Assessment and Plan Imp: OOB decr IVF tx to floor start PO Shahram Mars MD Apr 08, 2017 17:50
[2017-04-09] MEDS ORDERED: METOCLOPRAMIDE HCL 10 MG/2 ML VIAL IVS PRN (07:30)
[2017-04-09] MEDS: D5-NS + KCL 20 MEQ INJ 1,000 ML IV SCH ×3 (07:41→20:21)
[2017-04-09] MEDS: PANTOPRAZOLE SODIUM 40 MG VIAL IVP SCH (07:43)
[2017-04-09] MEDS: PANTOPRAZOLE SOD 40 MG DELAYED RELEASE TAB PO SCH (07:43)
[2017-04-09] MEDS: RAMIPRIL 2.5 MG CAP PO SCH (07:43)
[2017-04-09] MEDS: ALVIMOPAN 12 MG CAPSULE - Post-op dosing PO SCH ×2 (07:43→20:18)
[2017-04-09 08:00] VITALS: BP 165/83; PULSE 101; RESP 12; TEMP 98.5; O2SAT 98
[2017-04-09] MEDS: SODIUM CHLORIDE 0.9% FLUSH 5 ML FLUSH IVF SCH ×2 (09:00→20:23)
--- NOTE | 2017-04-09 10:15 | HHI.PR ---
Subjective Remarks C/R Surg POD #3 afebrile, VSS UO good MEDARDO serous roger PO Objective - Vital Signs Date Time Temp Pulse Resp B/P (MAP) Pulse Ox O2 Delivery O2 Flow Rate FiO2 04/09/17 08:00 98.5 101 12 165/83 (110) 98 04/07/17 08:26 Nasal Cannula 2.00 Result Diagram: 04/08/1715 04/08/17 0615 Objective Remarks PE alert Abd - soft, min tympany, wound dry A/P Assessment and Plan Imp: OOB decr IVF start PO, adv Shahram Mars MD Apr 09, 2017 10:15
[2017-04-09 12:00] VITALS: BP 155/74; PULSE 107; RESP 16; TEMP 96.9; O2SAT 100
[2017-04-09] MEDS: ACETAMINOPHEN/HYDROcodone 325 MG/5 MG TAB PO PRN ×3 (13:46→22:51)
[2017-04-09 16:00] VITALS: BP 133/77; PULSE 102; RESP 18; TEMP 95.4; O2SAT 100
[2017-04-09 20:00] VITALS: BP 136/70; PULSE 114; RESP 19; TEMP 96.6; O2SAT 95
[2017-04-10] VITALS: BP 152/72; PULSE 82; RESP 19; TEMP 98.1; O2SAT 100
[2017-04-10] MEDS: ACETAMINOPHEN/HYDROcodone 325 MG/5 MG TAB PO PRN ×3 (05:49→14:36)
[2017-04-10 08:00] VITALS: BP 160/75; PULSE 97; RESP 17; TEMP 98.4; O2SAT 98
[2017-04-10] MEDS: PANTOPRAZOLE SODIUM 40 MG VIAL IVP SCH (09:00)
[2017-04-10] MEDS: SODIUM CHLORIDE 0.9% FLUSH 5 ML FLUSH IVF SCH (09:00)
[2017-04-10] MEDS: RAMIPRIL 2.5 MG CAP PO SCH (09:07)
[2017-04-10] MEDS: ALVIMOPAN 12 MG CAPSULE - Post-op dosing PO SCH (09:08)
[2017-04-10] MEDS: PANTOPRAZOLE SOD 40 MG DELAYED RELEASE TAB PO SCH (09:08)
[2017-04-10 12:00] VITALS: BP 150/72; PULSE 102; RESP 17; TEMP 97.9; O2SAT 98
--- NOTE | 2017-04-10 14:33 | HHI.PR ---
Subjective Remarks POD#4 s/p Diverticular resection Comfortable, wants to go home Objective Vital Signs Date Time Temp Pulse Resp B/P (MAP) Pulse Ox O2 Delivery O2 Flow Rate FiO2 04/10/17 12:00 97.9 102 17 150/72 (98) 98 04/10/17 08:00 98.4 97 17 160/75 (103) 98 04/10/17 00:00 98.1 82 19 152/72 (98) 100 04/09/17 20:00 96.6 114 19 136/70 (92) 95 04/09/17 16:00 95.4 102 18 133/77 (95) 100 I/O 04/09/17 04/09/17 04/09/17 04/10/17 04/10/17 04/10/17 06:59 14:59 22:59 06:59 14:59 22:59 Intake Total 564 ml 600 ml 120 ml Output Total 730 ml 1780 ml 230 ml 800 ml Balance -166 ml -1780 ml 370 ml -680 ml Intake Oral 120 ml 600 ml 120 ml IV Total 444 ml Output Urine Total 700 ml 1700 ml 200 ml 800 ml Drainage Total 30 ml 80 ml 30 ml # Voids 5 # Bowel Movements 0 0 0 Result Diagram: 04/08/1761404/08/17614 Objective Remarks Abdomen soft, nondistended, tender Wound clean Assessment and Plan Assessment and Plan Doing well Home today Gisselle Islas MD Apr 10, 2017 14:33
[2017-04-10] MEDS ORDERED: HYDR-3516 PO (15:16)
--- NOTE | 2017-05-04 23:18 | MD ---
cc: JORGE DIEHL M.D., SANDRA ADMISSION DATE: 04/06/2017 DISCHARGE DATE: 04/10/2017 ADMISSION DIAGNOSIS Chronic diverticular disease with obstruction and abscess. PROCEDURE 04/06/2017, exploratory laparotomy, with proctosigmoidectomy, low pelvic anastomosis, intraoperative colonoscopy and omental flap. DISCHARGE DIAGNOSES 1. Extensive diverticular disease with abscess formation and obstruction. 2. Normal postop colonoscopy. HISTORY OF PRESENT ILLNESS Ms. Alvarado is a 72-year-old female who has been in relatively good health, has been hospitalized for an episode diverticulitis with perforation and obstruction requiring percutaneous CT guided drainage. Attempted colonoscopy recently showed significant diverticular disease with narrowing and obstruction of the colon. She continues to have some cramps and abdominal discomfort but no distension. No diarrhea, no rectal bleeding. Denies any discharge. No melena. Appetite has been good. Weight has been stable. The patient is admitted at this time for definitive surgical resection of the diverticular segment. Please see the admitting history and physical for complete past medical and surgical history. PERTINENT PHYSICAL A very pleasant, thin female, in no acute distress. Abdomen is soft, benign, a little tender in the lower abdomen. No rebound or guarding, or any masses. Anal inspection reveals benign canal. Digital exam reveals good tone with fullness and thickening in the pelvis. No mucosal irregularities or blood on the finger. HOSPITAL COURSE: After admission, the patient was taken to the operating room on the March at which point she underwent exploratory laparotomy with proctosigmoidectomy, low pelvic anastomosis, intraoperative colonoscopy and omental flap. She was found to have extensive diverticular disease with narrowing and abscess formation with high-grade obstruction of the rectosigmoid. She underwent segmental resection with low pelvic anastomosis. Postop colonoscopy was pretty unremarkable. She tolerated the procedure quite well. Initially she was stabilized in the intensive care unit. She also had cystoscopy and placement of ureteral stents. Her GI tract function returned quite promptly and her diet was advanced accordingly. She was able to ambulate with some assistance and had physical therapy for postop weakness. Respiratory therapy helped with some postop atelectasis. She continued to gain strength and was able to be weaned off her IV fluids. She was ambulating and doing well enough to be considered ready for discharge home on April 10, 2017. Final pathology report revealed a segment of a rectosigmoid with diverticulitis, pericolonic abscess formation but no evidence of malignancy. DISCHARGE INSTRUCTIONS The patient was discharged eating a regular diet. She was encouraged to ambulate daily avoiding any heavy lifting or straining. All preop medications were to be resumed. The patient will be seen in the office in one weeks' time for routine follow-up. Any problems prior to the scheduled office visit the patient was encouraged to call for more urgent attention. MD JUAN ALBERTO Farmer/LIUDMILA /10:12 PM /10:53 PM
== END 2017-04-10 16:09 | disposition home or self-care (01) | DRG 330 ==
LOC: HSDI 04-06 11:37 → HCIS 04-06 18:40 → N07A 04-08 12:05
PROVIDERS: ADMIT Colon & Rectal Surgery; ATTEND Colon & Rectal Surgery
PROC: 0DJD8ZZ Inspection of Lower Intestinal Tract, Via Natural or Artificial Opening Endoscopic (ICD-10-PCS; 2017-04-06)
PROC: 0T788DZ Dilation of Bilateral Ureters with Intraluminal Device, Via Natural or Artificial Opening Endoscopic (ICD-10-PCS; 2017-04-06)
PROC: 0DBP0ZZ Excision of Rectum, Open Approach (ICD-10-PCS; principal; 2017-04-06 14:22)
PROC: 0DBN0ZZ Excision of Sigmoid Colon, Open Approach (ICD-10-PCS; 2017-04-06 14:22)
PROC: 0WUF07Z Supplement Abdominal Wall with Autologous Tissue Substitute, Open Approach (ICD-10-PCS; 2017-04-06 14:22)
DX: K57.20 Diverticulitis of large intestine with perforation and abscess without bleeding (principal); K21.9 Gastro-esophageal reflux disease without esophagitis
CPT/HCPCS: 80048; 84155; 85025; 86077; 86850; 86870; 86880; 86900; 86901; 86920; 86921; 86922; 87640; 87641; 88307; 88309; 94150; C1769; C9113; J0131; J0690; J1610; J1885; J2270; J2405; J2710; J2765; J3010; J3480; J7120

== ENCOUNTER → 2017-03-30 | Outpatient (CLI) | payer MEDICARE, BC ==
[~2017-03-30] MED LIST changes: +DIFL100T PO; +DOXY100C PO; +HYDR-3516 PO
--- NOTE | 2017-03-30 10:48 | RADRPT ---
EXAM DATE/TIME: 03/30/2017 09:54 [facility] COMPARISON: No previous studies available for comparison. INDICATIONS : Evaluate for pneumonia, pneumothorax or communicable disease. Preop chest for for colon surgery on MEDICAL HISTORY : Diverticulitis. SURGICAL HISTORY : None. ENCOUNTER: Initial ACUITY: 1 day PAIN SCORE: 0/10 LOCATION: Bilateral chest FINDINGS: PA and lateral views of the chest demonstrate the lungs to be symmetrically aerated without evidence of mass, infiltrate or effusion. The cardiomediastinal contours are unremarkable. Osseous structure s are intact. CONCLUSION: No acute cardiopulmonary process. Rhett Malone MD on March 30, 2017 at 10:38 Board Certified Radiologist. This report was verified electronically.
[2017-03-30 10:51] LABS: AUTOMATED NEUTROPHIL # 3.3 TH/MM3 (1.8-7.7); BASOPHIL % 0.4 % (0.0-2.0); EOSINOPHIL % 0.2 % (0.0-4.0); HEMATOCRIT 34.4 % (35.0-46.0); HEMO FLAGS DIFF FINAL; LYMPH % 13.3 % (9.0-44.0); LYMPHOCYTE # 0.6 TH/MM3 (1.0-4.8); MEAN CELL VOLUME 84.1 FL (80.0-100.0); MEAN CORPUSCULAR HEMOGLOBIN 27.9 PG (27.0-34.0); MEAN CORPUSCULAR HGB CONC 33.2 % (32.0-36.0); MONO % 7.1 % (0.0-8.0); PLATELET COUNT 253 TH/MM3 (150-450); RED BLOOD COUNT 4.09 MIL/MM3 (4.00-5.30); RED CELL DISTRIBUTION WIDTH 16.4 % (11.6-17.2); WHITE BLOOD COUNT 4.2 TH/MM3 (4.0-11.0)
[2017-03-30 10:52] LABS: BLOOD, URINE NEG (NEG); COMMENT (UR) CULTURE INDICATED; CULTURE IF INDICATED CULTURE INDICATED; GLUCOSE,URINE NEG (NEG); KETONE, URINE NEG (NEG); MUCUS URINE FEW /lpf (OCC); NITRITE,URINE NEG (NEG); SQUAMOUS EPITHELIAL CELL URINE 2 /hpf (0-5); URINE COLOR YELLOW (YELLW/STRAW)
[2017-03-30 10:59] LABS: APTT (PATIENT) 25.5 SEC (24.3-30.1); PROTHROMBIN TIME - PATIENT 11.4 SEC (9.8-11.6)
[2017-03-30 11:16] LABS: ANION GAP 5 MEQ/L (5-15); BICARBONATE 27.6 MEQ/L (21.0-32.0); BLOOD UREA NITROGEN 21 MG/DL (7-18); CHLORIDE 105 MEQ/L (98-107); GLOMERULAR FILTRATION RATE 60 ML/MIN (>89); GLUCOSE,FASTING 110 MG/DL (74-99); POTASSIUM 4.4 MEQ/L (3.5-5.1); SODIUM (NA) 138 MEQ/L (136-145)
[2017-03-30 11:17] LABS: AST (GOT) 18 U/L (15-37)
[2017-03-30 11:21] LABS: ALKALINE PHOSPHATASE 54 U/L (45-117); ALT (GPT) 23 U/L (10-53); TOTAL BILIRUBIN ADULT 0.5 MG/DL (0.2-1.0)
--- NOTE | 2017-03-31 20:18 | EKG ---
Date Performed: 03/30/2017 Time Performed: 09:11:55 PTAGE: 72 years EKG: Sinus rhythm NORMAL ECG NO PREVIOUS TRACING DOCTOR: Ghada Yu Interpretating Date/Time 03/31/2017 20:17:26
== END ==
LOC: CPRE 08:51
PROVIDERS: ATTEND Colon & Rectal Surgery
DX: Z01.810 Encounter for preprocedural cardiovascular examination (principal); Z01.811 Encounter for preprocedural respiratory examination; Z01.812 Encounter for preprocedural laboratory examination; Z79.01 Long term (current) use of anticoagulants; K57.40 Diverticulitis of both small and large intestine with perforation and abscess without bleeding; R82.99 Other abnormal findings in urine
CPT/HCPCS: 36415; 71020; 80053; 81001; 85025; 85610; 85730; 87086; 93005